=== PATIENT | male | born 1970 | race Caucasian/White ===

== ENCOUNTER → 2017-10-07 14:50 | Outpatient (CLI) | payer MEDICARE, MEDICAID, SELFPAY ==
--- NOTE | 2017-10-07 15:02 | XR_ITS ---
XR thoracic spine 2V Ordering Physician: Nirali Briceño Patient Age: 47 years: Male HISTORY: ITS.REASON: AFTERCARE FOLLOWING SURGERY Upper back pain and tingling in right and left shoulder. C-spine surgery August 2017. TECHNIQUE: AP lateral and swimmer's view T-spine COMPARISON : Previous portable chest 2017 and previous cervical spine series from March 2017 FINDINGS No acute findings in the thoracic spine. Modest Anterior marginal osteophytes are seen throughout of the T-spine and lumbar vertebral bodies are intact and the disc spaces are well-maintained overall. Pedicles are intact no paraspinal mass. There may be very very gradual less than 4-5 degree gradual dextrocurvature mid T-spine,. This could be positional. Posterior ribs visualized unremarkable. Postsurgical changes are seen at the lower T-spine, C5-6 IMPRESSION: 1. The T-spine intact with mild degenerative changes. ... Vertebral bodies & disc intact. ... Early marginal osteophytes and degenerative changes throughout the T-spine noted. 2. Subtle dextrocurvature less than 5 degrees T-spine. Possibly in part due to positioning. 3. Partially imaged Anterior fusion C5/6 level noted on these T-spine series.
== END ==
PROVIDERS: PCP Family Medicine; Visit Provider Neurological Surgery
DX: Z48.89 Encounter for other specified surgical aftercare (principal)
CPT/HCPCS: 72070

== ENCOUNTER → 2017-12-01 09:26 | Outpatient (POV) | payer MEDICARE, MEDICAID, SELFPAY ==
[2017-12-01 11:01] LABS: Basophils # 0.1 K/mm3 (0-0.2); Basophils % 0.6 % (0.1-2.0); Eosinophils # 0.4 K/mm3 (0.0-0.4); Eosinophils % 3.6 % (0.1-12.0); Hemoglobin 15.8 g/dL (14.1-18.0); Lymphocytes # 3.2 K/mm3 (0.7-4.5); Lymphocytes % 33.3 K/mm3 (10-50); Mean Corpuscular Hemoglobin 30.5 pg (27.0-31.2); Mean Corpuscular Volume 92.5 fl (80-94); Mean Platelet Volume 7.9 fl (7.4-10.4); Monocytes # 0.6 K/mm3 (0.1-1.0); Monocytes % 5.9 % (1.7-9.3); Neutrophils # 5.4 K/mm3 (1.8-7.8); Neutrophils % 56.6 % (37.0-80.0); Platelet Count 288 K/mm3 (142-424); Red Blood Count 5.19 M/mm3 (4.60-6.20); Red Cell Distribution Width 13.1 % (11.5-17.5); White Blood Count 9.6 K/mm3 (4.8-10.8)
[2017-12-01 12:34] LABS: Alanine Aminotransferase 35 U/L (12-78); Albumin Level 3.3 gm/dL (3.4-5.0); Albumin/Globulin Ratio 0.8 (1.1-1.8); Alkaline Phosphatase 82 U/L (46-116); Anion Gap 12.5 mEq/L (5-15); Aspartate Amino Transferase 26 U/L (15-37); Bilirubin,Total 0.3 mg/dL (0.2-1.0); Blood Urea Nitrogen 7 mg/dL (7-18); Calcium 9.3 mg/dL (8.5-10.1); Carbon Dioxide 27 mmol/L (21.0-32.0); Chloride 105 mmol/L (98-107); Creatinine,Serum 0.72 mg/dL (0.70-1.30); Estimated Glomerular Filt Rate 117 ml/min (>60); GFR (African American) 142 ML/MIN (>60); Glucose 146 mg/dL (74-106); Potassium 4.5 mmoL/L (3.5-5.1); Sodium 140 mmol/L (136-145); Total Protein,Serum 7.3 gm/dL (6.4-8.2)
[2017-12-02 09:22] LABS: Hep A Ab, IgM Negative (Negative); Hepatitis B Core Antibody IgM Negative (Negative); Hepatitis B Surface Antigen Negative (Negative)
[2017-12-02 10:20] LABS: Hepatitis C Antibody <0.1 s/co ratio (0.0-0.9)
== END ==
PROVIDERS: PCP Emergency Medicine; Visit Provider Dermatology
DX: L40.0 Psoriasis vulgaris (principal); Z79.899 Other long term (current) drug therapy; R53.82 Chronic fatigue, unspecified
CPT/HCPCS: 36415; 80053; 80074; 85025; 86480

== ENCOUNTER → 2017-12-13 09:14 | Outpatient (REF) | payer MEDICARE, MEDICAID, SELFPAY ==
[2017-12-13 14:04] LABS: Amphetamine/Metha Screen,Urine Negative ng/mL (<1000); Barbiturates Screen,Urine Negative ng/mL (<200); Benzodiazepines Screen,Urine Negative ng/mL (200); Cannabinoid Screen,Urine Negative ng/mL (<50); Cocaine Screen,Urine Negative ng/g (<300); Methadone Screen,Urine Negative ng/mL (<300); Opiate Screen,Urine Negative ng/mL (<300); Phencyclidine Screen,Urine Negative ng/mL (<25)
== END ==
LOC: LAB 09:14
PROVIDERS: Visit Provider Emergency Medicine
DX: Z79.899 Other long term (current) drug therapy (principal)
CPT/HCPCS: 80305

== ENCOUNTER → 2018-01-10 09:44 | Outpatient (REF) | payer MEDICARE, MEDICAID, SELFPAY ==
[2018-01-10 14:45] LABS: Amphetamine/Metha Screen,Urine Negative ng/mL (<1000); Barbiturates Screen,Urine Negative ng/mL (<200); Benzodiazepines Screen,Urine Negative ng/mL (200); Cannabinoid Screen,Urine Negative ng/mL (<50); Cocaine Screen,Urine Negative ng/g (<300); Methadone Screen,Urine Negative ng/mL (<300); Opiate Screen,Urine Negative ng/mL (<300); Phencyclidine Screen,Urine Negative ng/mL (<25)
== END ==
LOC: LAB 09:44
PROVIDERS: Visit Provider Emergency Medicine
DX: Z79.899 Other long term (current) drug therapy (principal)
CPT/HCPCS: 80305

== ENCOUNTER → 2018-01-16 09:34 | Outpatient (POV) | payer MEDICARE, MEDICAID, SELFPAY | PROVIDERS: PCP Emergency Medicine; Visit Provider Physician Assistant | DX: Z00.00 Encounter for general adult medical examination without abnormal findings (principal) ==

== ENCOUNTER → 2018-02-07 14:55 | Outpatient (REF) | payer MEDICARE, MEDICAID, SELFPAY ==
[2018-02-07 19:02] LABS: Amphetamine/Metha Screen,Urine Negative ng/mL (<1000); Barbiturates Screen,Urine Negative ng/mL (<200); Benzodiazepines Screen,Urine Positive ng/mL (<200); Cannabinoid Screen,Urine Negative ng/mL (<50); Cocaine Screen,Urine Negative ng/mL (<300); Methadone Screen,Urine Negative ng/mL (<300); Opiate Screen,Urine Negative ng/mL (<300); Phencyclidine Screen,Urine Negative ng/mL (<25)
== END ==
LOC: LAB 14:55
PROVIDERS: Visit Provider Emergency Medicine
DX: Z79.899 Other long term (current) drug therapy (principal)
CPT/HCPCS: 80305

== ENCOUNTER → 2018-02-13 13:06 | Outpatient (CLI) | payer MEDICARE, MEDICAID, SELFPAY ==
--- NOTE | 2018-02-13 13:09 | CI_ITS ---
Cerebrovascular Exam Indications: TIA 434.91. IMPRESSIONS 1. The bilateral vertebral arteries are patent with normal antegrade flow. 2. Study suggests less than 20% stenosis involving the right internal carotid artery and the left internal carotid artery. Carotid duplex study. Complete study and Doppler flow study including spectral analysis, color and meadows scale imaging. Height: Height: 177.8cm. Height: 70in. Weight: Weight: 132kg. Weight: 290.4lb. Body mass index: BMI: 41.8kg/m^2. Body surface area: BSA: 2.61m^2. Location: Vascular laboratory. Patient status: Outpatient. Tables: Arterial flow: + +--------+--------+ Location V sys V ed + +--------+--------+ Right CCA - proximal 185cm/s 47.1cm/s + +--------+--------+ Right CCA - distal 158cm/s 47.1cm/s + +--------+--------+ Right ECA 133cm/s -------- + +--------+--------+ Right ICA - proximal 96cm/s 29.7cm/s + +--------+--------+ Right ICA - mid 107cm/s 31.4cm/s + +--------+--------+ Right ICA - distal 94.3cm/s 33.2cm/s + +--------+--------+ Right vertebral 47.5cm/s -------- + +--------+--------+ Left CCA - proximal 171cm/s 39.3cm/s + +--------+--------+ Left CCA - distal 122cm/s 27.9cm/s + +--------+--------+ Left ECA 115cm/s -------- + +--------+--------+ Left ICA - proximal 112cm/s 32.1cm/s + +--------+--------+ Left ICA - mid 128cm/s 42.6cm/s + +--------+--------+ Left ICA - distal 131cm/s 64.2cm/s + +--------+--------+ Left vertebral 31.4cm/s -------- + +--------+--------+ Velocity ratios: + + + + + + Right, V sys Right, V ed Left, V sys Left, V ed + + + + + + Max ICA/dist CCA 0.68 0.7 1.07 2.3 + + + + + + (Report amended ) Electronically signed by: Kodak Rich [id number]
== END ==
PROVIDERS: PCP Emergency Medicine; Visit Provider Emergency Medicine
DX: Z86.73 Personal history of transient ischemic attack (TIA), and cerebral infarction without residual deficits (principal)
CPT/HCPCS: 93880

== ENCOUNTER → 2018-03-10 10:10 | Outpatient (REF) | payer MEDICARE, MEDICAID, SELFPAY ==
[2018-03-10 14:23] LABS: Amphetamine/Metha Screen,Urine Negative ng/mL (<1000); Barbiturates Screen,Urine Negative ng/mL (<200); Benzodiazepines Screen,Urine Negative ng/mL (<200); Cannabinoid Screen,Urine Negative ng/mL (<50); Cocaine Screen,Urine Negative ng/mL (<300); Methadone Screen,Urine Negative ng/mL (<300); Opiate Screen,Urine Negative ng/mL (<300); Phencyclidine Screen,Urine Negative ng/mL (<25)
== END ==
LOC: LAB 10:10
PROVIDERS: Visit Provider Emergency Medicine
DX: Z79.899 Other long term (current) drug therapy (principal)
CPT/HCPCS: 80305

== ENCOUNTER → 2018-03-13 15:41 | Outpatient (CLI) | payer MEDICARE, MEDICAID, SELFPAY | PROVIDERS: PCP Emergency Medicine; Visit Provider Specialist | DX: I99.8 Other disorder of circulatory system (principal); E11.9 Type 2 diabetes mellitus without complications ==

== ENCOUNTER → 2018-04-07 08:33 | Outpatient (REF) | payer MEDICARE, MEDICAID, SELFPAY ==
[2018-04-07 18:48] LABS: Amphetamine/Metha Screen,Urine Negative ng/mL (<1000); Barbiturates Screen,Urine Negative ng/mL (<200); Benzodiazepines Screen,Urine Negative ng/mL (<200); Cannabinoid Screen,Urine Negative ng/mL (<50); Cocaine Screen,Urine Negative ng/mL (<300); Methadone Screen,Urine Negative ng/mL (<300); Opiate Screen,Urine Negative ng/mL (<300); Phencyclidine Screen,Urine Negative ng/mL (<25)
== END ==
LOC: LAB 08:33
PROVIDERS: Visit Provider Emergency Medicine
DX: Z79.899 Other long term (current) drug therapy (principal)
CPT/HCPCS: 80305

== ENCOUNTER → 2018-06-19 13:48 | Outpatient (CLI) | payer MEDICARE, SELFPAY ==
--- NOTE | 2018-06-19 13:49 | MR_ITS ---
MR cervical spine wo con, MR 3-d myelogram/MRCP Ordering Physician: Syed Riley MD Patient Age: 48 years: Male HISTORY: ITS.REASON: cervical disc diseaseneck pain. Bilateral shoulder and arm numbness and tingling right arm worse. Previous neck surgery. 19 August 2017 TECHNIQUE: Sagittal STIR, T1, T2, axial T1 and T2. On 1.5T Siemens wide bore MRI. 3-D MR myelogram image set obtained & performed on MRI workstation. Additional sagittal thin section T2 weighted dataset obtained from this latter acquisition as well (---76 CPT) COMPARISON :Previous MRI cervical spine 02/11/2017 FINDINGS Cranial cervical junction is normal. C2/3. Disc intact C3/4 focal central disc protrusion which does focal efface the cervical cord at midline. C4/5 minimal central disc bulge/ scant central disc protrusion. This just abuts the anterior aspect of cervical cord. Minimal uncovertebral joint hypertrophy bilaterally. C5-C6 interval anterior discectomy and anterior fusion at C5/6.. Good alignment. To the left, there is Persistent mild hard disc, left paracentral region, which does indent thecal sac and just mildly flattening the cervical cord the left. Similar to slight improved appearance here to the left versus 2017.. Only scant, less than evident T2 signal at cervical cord Itself, seen just posterior to this C5/6 level . To the right generous focal spur with accompanying disc, seen encroaching upon the right foramen. ( Axial image 22.. Sagittal 8) this was seen previously question slightly more apparent on today's slices. Resulting moderate/generous right foraminal encroachment C6/7. Mild broad-based disc protrusion midline and continuing to the right-. Slightly indents thecal sac to the right. This feature is very slightly more apparent than 2017 C7/T1 disc intact T1/T2. This intact. Posterior element, facet hypertrophy slightly mid posterior aspect of the spinal canal at this level as well likely at T2/T3. 3-D MR myelogram image set set demonstrates narrowing of the spinal canal at C5/6 with most evident indentation upon the thecal sac to the right related to the focal spur/hard disc to the right which yields yields encroachment upon right foramen. And effaces right corner of thecal sac. . Appears to be Slight improvement to the left at this level on the 3-D myelogram image set . IMPRESSION 1. Interval anterior discectomy & fusion at C5/6. .... C5/6.. Focal spur encroach upon right foramen as well as effaces right corner of thecal sac... Similar to slightly more evident ...... Mild broad-based mainly hard disc, left paracentral-. Perhaps slightly improved versus 2017 ..... Overall Mild residual central canal spinal stenosis C5-C6. .... Increased signal at the cervical cord itself at this level again noted but slightly improved. 2. C6-C7. Mild broad-based disc protrusion, midline & to the right-Slightly more evident Than 2017. 3. Other stable minor observations. ... C3/4. Small/moderate focal central disc protrusion. Appears Stable ... C4/5. Minimal disc osteophyte features only slightly indents thecal sac. ... Modest volume Underlying osseous spinal .
== END ==
PROVIDERS: PCP Emergency Medicine; Visit Provider Emergency Medicine
DX: M54.2 Cervicalgia
CPT/HCPCS: 72141; 76376

== ENCOUNTER → 2018-06-27 14:48 | Outpatient (CLI) | payer MEDICARE, SELFPAY ==
[2018-06-27 15:11] LABS: Amphetamine/Metha Screen,Urine Negative ng/mL (<1000); Barbiturates Screen,Urine Negative ng/mL (<200); Benzodiazepines Screen,Urine Negative ng/mL (<200); Cannabinoid Screen,Urine Negative ng/mL (<50); Cocaine Screen,Urine Negative ng/mL (<300); Methadone Screen,Urine Negative ng/mL (<300); Opiate Screen,Urine Negative ng/mL (<300); Phencyclidine Screen,Urine Negative ng/mL (<25)
== END ==
PROVIDERS: Visit Provider Emergency Medicine
DX: Z79.899 Other long term (current) drug therapy (principal)
CPT/HCPCS: 80305

== ENCOUNTER → 2018-07-18 09:01 | Outpatient (POV) | payer MEDICARE, MEDICAID, SELFPAY ==
[2018-07-18 09:20] VITALS: BP 141/75; PULSE 89; RESP 18; O2SAT 99
--- NOTE | 2018-07-18 09:41 | HMH.PMCON ---
Assessment and Plan (1) Postlaminectomy syndrome, cervical Current visit: Yes Status: Acute Category: Medical Code(s): M96.1 - Postlaminectomy syndrome, not elsewhere classified (2) Degenerative joint disease (DJD) of lumbar spine Current visit: Yes Status: Acute Category: Medical Code(s): M47.816 - Spondylosis without myelopathy or radiculopathy, lumbar region (3) Cervical radiculopathy Current visit: Yes Status: Acute Category: Medical Code(s): M54.12 - Radiculopathy, cervical region - Assessment and plan all Dx Assessment and Plan for all problems:: We will set the patient up for C5-C6 cervical epidural steroid injection. Patient also will be given some information on neuro stimulation I do believe this may be beneficial for him in the future. Patient is currently on a low-dose narcotic regimen of [place] 5 mg 1 p.o. 3 times daily from his primary care which seems quite appropriate at this time. I will follow-up with the patient after his injection. We will reassess his symptoms at that time. This note was dictated using voice recognition software and may contain errors or omissions HPI - Data of Consult Consult date: 07/18/18 Requesting Physician: Ava Bryant APRN Primary Care Provider: Syed Riley MD - Consult Narrative Reason for consult: Neck and back pain History of present illness: Mr. Workman is a 48 year old male who presents today for consultation in regards to his neck and back pain. His worst pain today is his neck he rates it a 9 out of 10. He has numbness and tingling into bilateral arms reaching to his fingers. Patient states all activity increases pain while rest decreases pain. Patient is currently disabled. Patient has not done physical therapy at this time however he is keeping with a home stretching program. Patient has been on anti-inflammatories along with narcotic medications. Patient has had facet joint injections in the past along with a risotto means with no relief. Patient also had neck surgery August of this year. He has been released from that surgeon. Patient is not on any anticoagulation therapy. CC: Ava Bryant APRN [facility] History I have reviewed the patient's past medical history: Yes Medical History: Reports:: Diabetes Mellitus Type 2, Gastroesophageal Reflux Disease(GERD), Hyperlipidemia, Hypertension, Myocardial Infarction, Transient Ischemic Attacks (TIA) Denies:: Cancer, Diabetes Mellitus Type 1, MRSA Other Medical History: Reports: Arthritis Laterality Cases: Bilateral: Tonsillectomy Other Surgeries: Yes: Other Amputation: No Fractures: Yes (ankles,tail bone,hand) - *Social History Smoking Status: Current every day smoker Tobacco Type: cigarettes Alcohol Intake: never Alcohol Intake Frequency:: other Substance Use Type: denies use Occupational Status: disabled Housing: house Household Members: family - Psychiatric History Expresses thoughts of harming self/others: None Suicide Plan Description: No Plan *Family Hx:: Hypertension, Coronary Artery Disease Review of Systems - Review of Systems ROS General: no recent weight change, no fever, no sleep disturbances Respiratory: no cough, no shortness of air, no recurring pulmonary infections Cardiovascular/Peripheral Vascular: No chest pain, No palpitations, no edema, no shortness of breath. Gastrointestinal: no incontinence, normal bowel movements reported Genitourinary: no incontinence Musculoskeletal: Back pain, neck pain, arm pain Psychiatric: normal mood/ affect, Neurological: Weakness in bilateral upper extremities at times, [denies balance issues] Meds Home Medications Medication Instructions Recorded Confirmed Type atorvastatin 10 mg tablet 10 mg PO DAILY 08/24/17 06/27/18 History clobetasol 0.05 % topical cream 1 applic TOPICAL DAILY 08/24/17 06/27/18 History cyclobenzaprine 10 mg tablet 10 mg PO DAILY tab 08/24/17 06/27/18 History adalimum
--- NOTE | 2018-07-18 09:44 | P.CONS_ITS ---
Assessment and Plan (1) Postlaminectomy syndrome, cervical Current visit: Yes Status: Acute Category: Medical Code(s): M96.1 - Postlaminectomy syndrome, not elsewhere classified (2) Degenerative joint disease (DJD) of lumbar spine Current visit: Yes Status: Acute Category: Medical Code(s): M47.816 - Spondylosis without myelopathy or radiculopathy, lumbar region (3) Cervical radiculopathy Current visit: Yes Status: Acute Category: Medical Code(s): M54.12 - Radiculopathy, cervical region - Assessment and plan all Dx Assessment and Plan for all problems:: We will set the patient up for C5-C6 cervical epidural steroid injection. Patient also will be given some information on neuro stimulation I do believe this may be beneficial for him in the future. Patient is currently on a low- dose narcotic regimen of [place] 5 mg 1 p.o. 3 times daily from his primary care which seems quite appropriate at this time. I will follow-up with the patient after his injection. We will reassess his symptoms at that time. This note was dictated using voice recognition software and may contain errors or omissions HPI - Data of Consult Consult date: 07/18/18 Requesting Physician: Ava Bryant APRN Primary Care Provider: Syed Riley MD - Consult Narrative Reason for consult: Neck and back pain History of present illness: Mr. Workman is a 48 year old male who presents today for consultation in regards to his neck and back pain. His worst pain today is his neck he rates it a 9 out of 10. He has numbness and tingling into bilateral arms reaching to his fingers. Patient states all activity increases pain while rest decreases pain. Patient is currently disabled. Patient has not done physical therapy at this time however he is keeping with a home stretching program. Patient has been on anti-inflammatories along with narcotic medications. Patient has had facet joint injections in the past along with a risotto means with no relief. Patient also had neck surgery August of this year. He has been released from that surgeon. Patient is not on any anticoagulation therapy. CC: Ava Bryant APRN [facility] History I have reviewed the patient's past medical history: Yes Medical History: Reports:: Diabetes Mellitus Type 2, Gastroesophageal Reflux Disease(GERD), Hyperlipidemia, Hypertension, Myocardial Infarction, Transient Ischemic Attacks (TIA) Denies:: Cancer, Diabetes Mellitus Type 1, MRSA Other Medical History: Reports: Arthritis Laterality Cases: Bilateral: Tonsillectomy Other Surgeries: Yes: Other Amputation: No Fractures: Yes (ankles,tail bone,hand) - *Social History Smoking Status: Current every day smoker Tobacco Type: cigarettes Alcohol Intake: never Alcohol Intake Frequency:: other Substance Use Type: denies use Occupational Status: disabled Housing: house Household Members: family - Psychiatric History Expresses thoughts of harming self/others: None Suicide Plan Description: No Plan *Family Hx:: Hypertension, Coronary Artery Disease Review of Systems - Review of Systems ROS General: no recent weight change, no fever, no sleep disturbances Respiratory: no cough, no shortness of air, no recurring pulmonary infections Cardiovascular/Peripheral Vascular: No chest pain, No palpitations, no edema, no shortness of breath. Gastrointestinal: no incontinence, normal bowel movements reported Genitourinary: no incontinence Musculoskeletal: Back pain, neck pain, arm pain Psychiatric: normal mood/ affect, Neurolog
== END ==
PROVIDERS: PCP Emergency Medicine; Visit Provider Clinical Nurse Specialist Family Health
DX: M96.1 Postlaminectomy syndrome, not elsewhere classified (principal); M47.816 Spondylosis without myelopathy or radiculopathy, lumbar region; M54.12 Radiculopathy, cervical region
CPT/HCPCS: 99202

== ENCOUNTER → 2018-08-28 14:31 | Outpatient (POV) | payer MEDICARE, MEDICAID, SELFPAY ==
[2018-08-28 14:47] VITALS: BP 155/95; PULSE 101; RESP 18; O2SAT 99; BMI 39.7
--- NOTE | 2018-08-28 14:58 | P.CONS_ITS ---
[facility] Pain Management SOAP Note Subjective:: Patient is a pleasant 48-year-old white male who presents today for follow-up after his first cervical epidural injection. Patient states that all of his right-sided nerve pain has decreased significantly. Patient states is also help with his neck pain. He rates his pain a 6 out of 10. Patient otherwise doing fairly well. Patient denies any anticoagulation therapy. Patient is interested in repeating this injection. Patient states that his primary care has sent him back to his neurosurgeon. I discussed with the patient that we can continue with the injections to help prepare for that visit. Patient is interested in moving forward with this. Patient states he got up to 80% relief of his symptoms after the injection. ROS General: no recent weight change, no fever, no sleep disturbances Respiratory: no cough, no shortness of air, no recurring pulmonary infections Cardiovascular/Peripheral Vascular: No chest pain, No palpitations, no edema, no shortness of breath. Gastrointestinal: no incontinence, normal bowel movements reported Genitourinary: no incontinence Musculoskeletal: Neck pain Psychiatric: normal mood/ affect Neurological: [denies weakness in extremities], [denies balance issues] Objective:: Physical Exam General: Alert and oriented x3, no acute distress, pleasant and cooperative, [on room air] Lungs: Resps E/U, Symmetrical chest expansion, Eyes: PERRL Musculoskeletal: Flexion and extension of cervical spine somewhat guarded secondary to pain, deep tendon reflexes normal, strength in upper and lower extremities [5/5], normal gait noted Neurological: speech clear, blue print control clerk equal, no gross sensory deficits Assessment:: Degenerative disc disease cervical spine with cervical radiculopathy symptoms and post laminectomy syndrome Plan:: We will schedule him for repeat C5-C6 cervical epidural steroid injection given the efficacy of the last one. He is continuing his home stretching program. I will follow-up with him after his second injection. Dr. Montes has reviewed this note and agrees with this plan of care. This note was dictated using voice recognition software and may contain errors or omissions
== END ==
PROVIDERS: PCP Emergency Medicine; Visit Provider Clinical Nurse Specialist Family Health
DX: M96.1 Postlaminectomy syndrome, not elsewhere classified (principal); M50.10 Cervical disc disorder with radiculopathy, unspecified cervical region
CPT/HCPCS: 99213

== ENCOUNTER → 2018-10-09 14:35 | Outpatient (POV) | payer MEDICARE, MEDICAID, SELFPAY ==
[2018-10-09 14:48] VITALS: BP 157/99; PULSE 77; RESP 18; O2SAT 98; BMI 40.4
--- NOTE | 2018-10-10 08:40 | P.CONS_ITS ---
[facility] Pain Management SOAP Note Subjective:: Patient is a pleasant 48-year-old white male who presents today for follow-up after cervical epidural steroid injection. Patient rates his pain a 6 out of 10. Patient is doing extremely well getting 80% relief after his injection. Patient would like to move forward with one last cervical epidural steroid injection to see if he can get maximum benefit. Patient was then like to start discussing his low back pain. ROS General: no recent weight change, no fever, no sleep disturbances Respiratory: no cough, no shortness of air, no recurring pulmonary infections Cardiovascular/Peripheral Vascular: No chest pain, No palpitations, no edema, no shortness of breath. Gastrointestinal: no incontinence, normal bowel movements reported Genitourinary: no incontinence Musculoskeletal: Neck and low back pain Psychiatric: normal mood/ affect Neurological: [denies weakness in extremities], [denies balance issues] Objective:: Physical Exam General: Alert and oriented x3, no acute distress, pleasant and cooperative, [on room air] Lungs: Resps E/U, Symmetrical chest expansion, Eyes: PERRL Musculoskeletal: Flexion and extension of cervical and lumbar spine somewhat guarded secondary to pain, deep tendon reflexes normal, strength in upper and lower extremities [5/5], slightly antalgic gait noted Neurological: speech clear, motor polarizer equal, no gross sensory deficits Assessment:: Degenerative disc disease with cervical spinal cervical radiculopathy symptoms and postlaminectomy syndrome cervical spine Plan:: We will schedule a C4-C5 cervical epidural steroid injection for the patient given the efficacy of this in the past. He is not on any anticoagulation therapy. He is continuing on anti-inflammatories while I will follow-up with the patient after his injection and reassess his symptoms at that time. Patient is continuing a home stretching program. Dr. Montes has reviewed this note and agrees with this plan of care. This note was dictated using voice recognition software and may contain errors or omissions
== END ==
PROVIDERS: PCP Emergency Medicine; Visit Provider Clinical Nurse Specialist Family Health
DX: M50.10 Cervical disc disorder with radiculopathy, unspecified cervical region (principal); M96.1 Postlaminectomy syndrome, not elsewhere classified
CPT/HCPCS: 99213

== ENCOUNTER → 2018-10-10 13:46 | Outpatient (CLI) | payer MEDICARE, MEDICAID, SELFPAY ==
[2018-10-10 14:28] LABS: Amphetamine/Metha Screen,Urine Negative ng/mL (<1000); Barbiturates Screen,Urine Negative ng/mL (<200); Benzodiazepines Screen,Urine Negative ng/mL (<200); Cannabinoid Screen,Urine Negative ng/mL (<50); Cocaine Screen,Urine Negative ng/mL (<300); Methadone Screen,Urine Negative ng/mL (<300); Opiate Screen,Urine Positive ng/mL (<300); Phencyclidine Screen,Urine Negative ng/mL (<25)
== END ==
PROVIDERS: Visit Provider Nurse Practitioner Family
DX: Z79.899 Other long term (current) drug therapy (principal)
CPT/HCPCS: 80305

== ENCOUNTER → 2018-11-13 09:51 | Outpatient (POV) | payer MEDICARE, MEDICAID, SELFPAY ==
--- NOTE | 2018-11-13 10:12 | P.CONS_ITS ---
[facility] Pain Management SOAP Note Subjective:: She is a pleasant 48-year-old white male who presents today for follow-up after cervical epidural steroid injection. Patient states his neck pain is doing really well rates it a 3 out of 10. Most of his pain is in his tailbone today he did fall yesterday causing quite a bit of low back pain. ROS General: no recent weight change, no fever, no sleep disturbances Respiratory: no cough, no shortness of air, no recurring pulmonary infections Cardiovascular/Peripheral Vascular: No chest pain, No palpitations, no edema, no shortness of breath. Gastrointestinal: no incontinence, normal bowel movements reported Genitourinary: no incontinence Musculoskeletal: Back pain Psychiatric: normal mood/ affect Neurological: [denies weakness in extremities], [denies balance issues] Objective:: Physical Exam General: Alert and oriented x3, no acute distress, pleasant and cooperative, [on room air] Lungs: Resps E/U, Symmetrical chest expansion, Eyes: PERRL Musculoskeletal: Flexion and extension of lumbar spine somewhat guarded secondary to pain, deep tendon reflexes normal, strength in upper and lower extremities [5/5], [abnormal gait noted] Neurological: speech clear, nuclear physics teacher equal, no gross sensory deficits Assessment:: Degenerative disc disease cervical spine with cervical radiculopathy and degenerative disc disease lumbar spine with lumbar radiculopathy Plan:: We will call some prednisone in for the patient up follow-up with him in 2 weeks reassess his symptoms at that time. We will then move forward with a plan of care. Dr. Montes has reviewed this note and agrees with this plan of care. This note was dictated using voice recognition software and may contain errors or omissions
[2018-11-13 10:42] VITALS: BP 149/86; PULSE 83; RESP 18; O2SAT 98; BMI 39.0
== END ==
PROVIDERS: PCP Emergency Medicine; Visit Provider Clinical Nurse Specialist Family Health
DX: M50.10 Cervical disc disorder with radiculopathy, unspecified cervical region (principal); M51.16 Intervertebral disc disorders with radiculopathy, lumbar region
CPT/HCPCS: 99212

== ENCOUNTER → 2018-11-14 13:18 | Outpatient (CLI) | payer MEDICARE, MEDICAID, SELFPAY ==
[2018-11-14 14:49] LABS: Amphetamine/Metha Screen,Urine Negative ng/mL (<1000); Barbiturates Screen,Urine Negative ng/mL (<200); Benzodiazepines Screen,Urine Positive ng/mL (<200); Cannabinoid Screen,Urine Negative ng/mL (<50); Cocaine Screen,Urine Negative ng/mL (<300); Methadone Screen,Urine Negative ng/mL (<300); Opiate Screen,Urine Positive ng/mL (<300); Phencyclidine Screen,Urine Negative ng/mL (<25)
== END ==
PROVIDERS: Visit Provider Nurse Practitioner Family
DX: T50.902A Poisoning by unspecified drugs, medicaments and biological substances, intentional self-harm, initial encounter (principal)
CPT/HCPCS: 80305

== ENCOUNTER → 2018-12-12 14:18 | Outpatient (CLI) | payer MEDICARE, MEDICAID, SELFPAY ==
[2018-12-12 16:24] LABS: Amphetamine/Metha Screen,Urine Negative ng/mL (<1000); Barbiturates Screen,Urine Negative ng/mL (<200); Benzodiazepines Screen,Urine Positive ng/mL (<200); Cannabinoid Screen,Urine Negative ng/mL (<50); Cocaine Screen,Urine Negative ng/mL (<300); Methadone Screen,Urine Negative ng/mL (<300); Opiate Screen,Urine Negative ng/mL (<300); Phencyclidine Screen,Urine Negative ng/mL (<25)
== END ==
PROVIDERS: Visit Provider Emergency Medicine
DX: Z79.899 Other long term (current) drug therapy (principal)
CPT/HCPCS: 80305

== ENCOUNTER → 2019-02-14 18:03 | Outpatient (CLI) | payer MEDICARE, MEDICAID, SELFPAY ==
[2019-02-14 18:56] LABS: Amphetamine/Metha Screen,Urine Negative ng/mL (<1000); Barbiturates Screen,Urine Negative ng/mL (<200); Benzodiazepines Screen,Urine Negative ng/mL (<200); Cannabinoid Screen,Urine Negative ng/mL (<50); Cocaine Screen,Urine Negative ng/mL (<300); Methadone Screen,Urine Negative ng/mL (<300); Opiate Screen,Urine Negative ng/mL (<300); Phencyclidine Screen,Urine Negative ng/mL (<25)
[2019-02-22 08:15] LABS: Opiates Negative (Cutoff=100)
== END ==
PROVIDERS: Visit Provider Emergency Medicine
DX: Z79.899 Other long term (current) drug therapy (principal)
CPT/HCPCS: 80305; 80361; 80365; G0480

== ENCOUNTER → 2019-04-04 17:48 | Outpatient (CLI) | payer MEDICARE, MEDICAID, SELFPAY ==
[2019-04-04 20:01] LABS: Amphetamine/Metha Screen,Urine Negative ng/mL (<1000); Barbiturates Screen,Urine Negative ng/mL (<200); Benzodiazepines Screen,Urine Negative ng/mL (<200); Cannabinoid Screen,Urine Negative ng/mL (<50); Cocaine Screen,Urine Negative ng/mL (<300); Methadone Screen,Urine Negative ng/mL (<300); Opiate Screen,Urine Positive ng/mL (<300); Phencyclidine Screen,Urine Negative ng/mL (<25)
== END ==
PROVIDERS: Visit Provider Emergency Medicine
DX: Z79.891 Long term (current) use of opiate analgesic (principal)
CPT/HCPCS: 80305

== ENCOUNTER → 2019-05-30 18:10 | Outpatient (CLI) | payer MEDICARE, MEDICAID, SELFPAY ==
[2019-05-30 18:53] LABS: Amphetamine/Metha Screen,Urine Negative ng/mL (<1000); Barbiturates Screen,Urine Negative ng/mL (<200); Benzodiazepines Screen,Urine Negative ng/mL (<200); Cannabinoid Screen,Urine Negative ng/mL (<50); Cocaine Screen,Urine Negative ng/mL (<300); Methadone Screen,Urine Negative ng/mL (<300); Opiate Screen,Urine Positive ng/mL (<300); Phencyclidine Screen,Urine Negative ng/mL (<25)
== END ==
PROVIDERS: Visit Provider Emergency Medicine
DX: M54.2 Cervicalgia (principal)
CPT/HCPCS: 80305

== ENCOUNTER → 2019-07-17 13:51 | Outpatient (CLI) | payer MEDICARE, SELFPAY ==
[2019-07-17 16:51] LABS: Amphetamine/Metha Screen,Urine Negative ng/mL (<1000); Barbiturates Screen,Urine Negative ng/mL (<200); Benzodiazepines Screen,Urine Negative ng/mL (<200); Cannabinoid Screen,Urine Negative ng/mL (<50); Cocaine Screen,Urine Negative ng/mL (<300); Methadone Screen,Urine Negative ng/mL (<300); Opiate Screen,Urine Positive ng/mL (<300); Phencyclidine Screen,Urine Negative ng/mL (<25)
== END ==
PROVIDERS: Visit Provider Emergency Medicine
DX: Z79.899 Other long term (current) drug therapy (principal)
CPT/HCPCS: 80305

== ENCOUNTER → 2019-09-04 17:52 | Outpatient (CLI) | payer MEDICARE, MEDICAID, SELFPAY ==
[2019-09-04 19:45] LABS: Amphetamine/Metha Screen,Urine Negative ng/mL (<1000); Barbiturates Screen,Urine Negative ng/mL (<200); Benzodiazepines Screen,Urine Negative ng/mL (<200); Cannabinoid Screen,Urine Negative ng/mL (<50); Cocaine Screen,Urine Negative ng/mL (<300); Methadone Screen,Urine Negative ng/mL (<300); Opiate Screen,Urine Positive ng/mL (<300); Phencyclidine Screen,Urine Negative ng/mL (<25)
== END ==
PROVIDERS: Visit Provider Emergency Medicine
DX: Z79.899 Other long term (current) drug therapy (principal)
CPT/HCPCS: 80305

== ENCOUNTER → 2019-10-04 11:58 | Outpatient (CLI) | payer MEDICARE, MEDICAID, SELFPAY ==
--- NOTE | 2019-10-04 | ECG_ITS ---
APPROVED REPORT Exam: Resting ECG HR:71 bpm ECG Measurements Heart Rate 71 AXES RI 130 P 42 QRSd 90 QRS -6 QT 408 T 49 QTc 443 <Conclusion> Normal sinus rhythm Normal ECG Electronically signed by : Geoffrey Crandall, 10/05/2019 08:43:37
--- NOTE | 2019-10-04 12:15 | XR_ITS ---
PROCEDURE: XR CHEST 2V CLINICAL HISTORY: preop Smoker, hypertension, COPD COMPARISON: CXR2V XR chest 2V from 01/22/2018 CXR2V XR chest 2V from 03/22/2018 CXR2V XR chest 2V from 06/04/2018 FINDINGS: The cardiomediastinal silhouette and pulmonary vascularity are within normal limits. There is mild coarsening of the bronchovascular markings nonspecific and may be seen with smoking related lung disease. No lobar consolidation or collapse. Postsurgical changes lower cervical spine. No acute bony abnormalities. IMPRESSION: Mild nonspecific coarsening of the bronchovascular markings otherwise negative Dictated by: Martinez Li MD 10/04/2019 15:30 Electronically signed by Martinez Li MD in [place] 10/04/2019 15:30
[2019-10-04 12:22] LABS: Basophils # 0.1 K/mm3 (0-0.2); Basophils % 0.7 % (0.1-2.0); Eosinophils # 0.4 K/mm3 (0.0-0.4); Eosinophils % 3.9 % (0.1-12.0); Hematocrit 46.5 % (42.0-52.0); Hemoglobin 15.7 g/dL (14.1-18.0); Lymphocytes # 3.1 K/mm3 (0.7-4.5); Lymphocytes % 30.3 % (10-50); Mean Corpuscular HGB Conc 33.7 g/dL (31.8-35.4); Mean Corpuscular Hemoglobin 31.1 pg (27.0-31.2); Mean Corpuscular Volume 92.2 fl (80-94); Monocytes # 0.5 K/mm3 (0.1-1.0); Monocytes % 4.7 % (1.7-9.3); Neutrophils # 6.2 K/mm3 (1.8-7.8); Neutrophils % 60.5 % (37.0-80.0); Platelet Count 273 K/mm3 (142-424); Red Blood Count 5.04 M/mm3 (4.60-6.20); Red Cell Distribution Width 13.3 % (11.5-17.5); White Blood Count 10.3 K/mm3 (4.8-10.8)
[2019-10-04 13:49] LABS: Anion Gap 10.7 mEq/L (5-15); Blood Urea Nitrogen 8 mg/dl (9-20); Calcium 9.5 mg/dl (8.4-10.2); Carbon Dioxide 29 mmol/L (22.0-30.0); Chloride 101 mmol/L (98-107); Estimated Glomerular Filt Rate 120 ml/min (>60); GFR (African American) 145 ML/MIN (>60); Glucose 170 mg/dl (74-100); Potassium 4.7 mmoL/L (3.5-5.1); Sodium 136 mmol/L (136-145)
== END ==
PROVIDERS: Visit Provider Surgery
DX: K81.1 Chronic cholecystitis (principal); K42.9 Umbilical hernia without obstruction or gangrene; Z01.818 Encounter for other preprocedural examination
CPT/HCPCS: 36415; 71046; 80048; 85025; 93005

== ENCOUNTER → 2019-10-09 08:47 | Outpatient (CLI) | payer MEDICARE, MEDICAID, SELFPAY ==
--- NOTE | 2019-10-09 08:53 | XR_ITS ---
PROCEDURE: XR SHOULDER LT MIN 2V CLINICAL INDICATION: left shoulder pain COMPARISON: SHOULDCMRT XR shoulder RT min 2V from 06/04/2018 FINDINGS: There are prominent hypertrophic changes at the superior aspect of the acromioclavicular joint with mild osteoarthritis of the AC joint and glenohumeral joint. No significant subacromial stenosis. No fracture or dislocation. IMPRESSION: Osteoarthritic change of the acromioclavicular joint and glenohumeral joint Dictated by: Martinez Li MD 10/09/2019 10:48 Electronically signed by Martinez Li MD in [place] 10/09/2019 10:48
== END ==
PROVIDERS: PCP Emergency Medicine; Visit Provider Orthopaedic Surgery
DX: M25.512 Pain in left shoulder (principal)
CPT/HCPCS: 73030

== ENCOUNTER → 2019-10-29 10:11 | Outpatient (POV) | payer MEDICARE, MEDICAID, SELFPAY | PROVIDERS: PCP Emergency Medicine; Visit Provider Specialist | DX: M79.602 Pain in left arm (principal); M79.601 Pain in right arm; R20.2 Paresthesia of skin | CPT/HCPCS: 95886; 95908 ==

== ENCOUNTER → 2019-11-01 08:42 | Outpatient (CLI) | payer MEDICARE, MEDICAID, SELFPAY ==
--- NOTE | 2019-11-01 08:42 | MR_ITS ---
PROCEDURE: MR SHOULDER LT WO CON CLINICAL INDICATION: evaluate for rotator cuff tear Left shoulder pain for 1 year with no known injury The patient had trouble holding still for the exam. According to the technologist reports the best images obtainable were submitted. COMPARISON: No exams were available for comparison TECHNIQUE: Routine multiplanar multisequence exam was performed. FINDINGS: Varying degrees of patient motion artifact degrade all imaging sequences. There is moderate acromioclavicular joint arthropathy. A small amount of bone marrow edema appears to be present in the distal clavicle and in the acromion and small subchondral cysts appear to be present. Subchondral cysts are also seen in the posterior humeral head. There is some fluid signal within the acromioclavicular joint. Remaining bony elements appear of normal signal intensity. There is a partial-thickness near full-thickness tear of the supraspinatus tendon of the rotator cuff. Partial-thickness tear of the infraspinatus tendon also appears to be present. Bicipital tendon is poorly visualized for assessment due to patient motion artifact. Glenoid labrum appear grossly intact. A small amount of fluid is seen in the subdeltoid bursa. IMPRESSION: Limited exam with patient motion artifact degradation of images. Partial-thickness tears of supraspinatus and infraspinatus tendons of rotator cuff. Acromioclavicular joint arthropathy. Dictated by: Valente Bryant 11/01/2019 11:26 Electronically signed by Valente Bryant in [place] 11/01/2019 11:26
== END ==
PROVIDERS: PCP Emergency Medicine; Visit Provider Orthopaedic Surgery
DX: M25.512 Pain in left shoulder (principal)
CPT/HCPCS: 73221

== ENCOUNTER 2019-11-06 11:24 | Outpatient (RCR) | payer MEDICARE, MEDICAID, SELFPAY | END 2019-11-06 12:00 | disposition home or self-care (01) | LOC: PT 11:24 | PROVIDERS: Visit Provider Orthopaedic Surgery | DX: G56.02 Carpal tunnel syndrome, left upper limb (principal) ==

== ENCOUNTER → 2020-01-26 10:07 | Outpatient (CLI) | payer MEDICARE, MEDICAID, SELFPAY ==
--- NOTE | 2020-01-26 10:30 | ECG_ITS ---
APPROVED REPORT Exam: Resting ECG HR:84 bpm ECG Measurements Heart Rate 84 AXES CO 148 P 57 QRSd 92 QRS -4 QT 378 T 56 QTc 446 <Conclusion> Normal sinus rhythm Incomplete RBBB Otherwise a Normal ECG Electronically signed by : Rolando Barbour, 01/26/2020 12:13:29
[2020-01-26 10:32] LABS: Basophils # 0.1 K/mm3 (0-0.2); Basophils % 0.6 % (0.1-2.0); Eosinophils # 0.4 K/mm3 (0.0-0.4); Eosinophils % 3.6 % (0.1-12.0); Hematocrit 50.3 % (42.0-52.0); Hemoglobin 17.1 g/dL (14.1-18.0); Lymphocytes # 3.7 K/mm3 (0.7-4.5); Lymphocytes % 35.8 % (10-50); Mean Corpuscular HGB Conc 33.9 g/dL (31.8-35.4); Mean Corpuscular Hemoglobin 31.7 pg (27.0-31.2); Mean Corpuscular Volume 93.5 fl (80-94); Mean Platelet Volume 7.9 fl (7.4-10.4); Monocytes # 0.4 K/mm3 (0.1-1.0); Monocytes % 3.9 % (1.7-9.3); Neutrophils # 5.9 K/mm3 (1.8-7.8); Neutrophils % 56.1 % (37.0-80.0); Platelet Count 244 K/mm3 (142-424); Red Blood Count 5.38 M/mm3 (4.60-6.20); Red Cell Distribution Width 13.4 % (11.5-17.5); White Blood Count 10.4 K/mm3 (4.8-10.8)
[2020-01-26 11:36] LABS: Coronavirus 19 IgG Antibody Negative (Negative); Coronavirus 19 IgM Antibody Negative (Negative)
[2020-01-26 12:18] LABS: Chloride 102 mmol/L (98-107); Potassium 4.8 mmoL/L (3.5-5.1); Sodium 135 mmol/L (136-145)
[2020-01-26 12:20] LABS: Alanine Aminotransferase 36 U/L (12-78); Blood Urea Nitrogen 16 mg/dl (9-20); Estimated Glomerular Filt Rate 103 ml/min (>60); GFR (African American) 124 ML/MIN (>60)
[2020-01-26 12:21] LABS: Albumin Level 3.9 g/dl (3.5-5.0); Albumin/Globulin Ratio 1.1 (1.1-1.8); Alkaline Phosphatase 58 U/L (38-126); Anion Gap 9.8 mEq/L (5-15); Aspartate Amino Transferase 34 U/L (17-59); Bilirubin,Total 0.5 mg/dl (0.2-1.3); Calcium 9.3 mg/dl (8.4-10.2); Carbon Dioxide 28 mmol/L (22.0-30.0); Globulin 3.4 g/dL (1.3-3.2); Glucose 188 mg/dl (74-100); Total Protein,Serum 7.3 g/dl (6.3-8.2)
== END ==
PROVIDERS: Visit Provider Orthopaedic Surgery
DX: Z01.818 Encounter for other preprocedural examination (principal); M25.512 Pain in left shoulder; M75.112 Incomplete rotator cuff tear or rupture of left shoulder, not specified as traumatic; M75.52 Bursitis of left shoulder; M75.42 Impingement syndrome of left shoulder; Z79.899 Other long term (current) drug therapy
CPT/HCPCS: 36415; 80053; 83036; 85025; 86328; 93005

== ENCOUNTER 2020-01-28 06:12 | Day surgery (SDC) | payer MEDICARE, MEDICAID, SELFPAY ==
[2020-01-25 13:55] VITALS: BMI 39.7
[2020-01-28] VITALS (28 sets, daily range): BP systolic 124–229; BP diastolic 66–190; PULSE 86–115; RESP 13–32; TEMP 36.3–38; O2SAT 90–97
--- NOTE | 2020-01-28 06:51 | P.PN_ITS ---
[facility] Anesthesia Checklist - Structural Data Admitted From: Home Planned Operative Procedure/s: l shoulder arthroscopy Consent for Planned Operative Procedure(s) Verified: Yes - Additional verifications Anesthesia Reactions: No Hx Blood Transfusions: No Blood Transfusion Reaction: No - Airway Assessment C-Spine Mobility Assessed: No (neck surgery) TMJ Mobility Assessed: Yes Dentition: Poor Dentition - Neurological Assessment Level of Consciousness: Awake, Alert, Appropriate - Anesthesia Plan Anesthesia Risk discussed: Yes Anesthesia Plan: Patient unable to respond/answer ASA Class: III Anesthesia Type: General w/block [facility] History I have reviewed the patient's past medical history: Yes Medical History: Reports:: Depression, Gastroesophageal Reflux Disease(GERD), Hyperlipidemia, Hypertension, Myocardial Infarction, Transient Ischemic Attacks (TIA) Denies:: Cancer, Diabetes Mellitus Type 1, Diabetes Mellitus Type 2, Internal Pacemaker, MRSA, Seizures *Have you ever received a pneumonia vaccine?: Yes *Have you received a flu vaccine this season?: Yes Other Medical History: Reports: Arthritis. Denies: Blood Transfusion Reaction Anesthesia experience/problems:: none Laterality Cases: Bilateral: Tonsillectomy Other Surgeries: Yes: Colonoscopy, Hernia Repair, Other. No: Pacemaker Amputation: No Fractures: Yes (ankles,tail bone,hand) - *Social History Educational Level: Completed High School Smoking Status: Current every day smoker Tobacco Type: cigarettes # Packs/Day (cigarettes): 1 Alcohol Intake: never Alcohol Intake Frequency:: other Substance Use Type: denies use *Occupational Status:: disabled Housing: house Household Members: spouse *Travel in the last 8 weeks: None - Psychiatric History Pschychiatric History:: Reports:: Depression Family Hx:: Coronary Artery Disease, Diabetes, Heart Attack, Hyperlipidemia, Hypertension, Stroke
[2020-01-28 09:19] LABS: Microscopic,Cath URINE MICROSCOPIC (MICROSCOPIC)
[2020-01-28 09:21] LABS: Appearance,Urine/Cath CLEAR (Clear); Bilirubin,Cath Negative (Negative); Blood, Urine/Cath Negative (Negative); Color,Urine/Cath YELLOW (Yellow); Glucose,Urine/Cath (UA) Negative (Negative); Ketones,Urine/Cath Negative (Negative); Leukocyte Esterase,Cath Negative (Negative); Nitrate,Cath Negative (Negative); PH,Urine/Cath 6.5 (5.0-8.5); Protein,Urine/Cath Negative (Negative); Specific Gravity, Urine/Cath 1.015 (1.005-1.030)
--- NOTE | 2020-01-28 10:09 | XR_ITS ---
PROCEDURE: XR SHOULDER LT 1V CLINICAL INDICATION: SCOPE PLACEMENT FOR ARTHROSCOPY COMPARISON: SHOULDCMRT XR shoulder RT min 2V from 06/04/2018 XR SHOULDER LT MIN 2V from 10/09/2019 FINDINGS: Fluoro time: 56 seconds Single axillary view submitted showing shoulder location IMPRESSION: C-arm utilization for arthroscopy Dictated by: Martinez Li MD 01/28/2020 12:18 Electronically signed by Martinez Li MD in [place] 01/28/2020 12:18
--- NOTE | 2020-01-28 10:16 | SUR.OPER ---
1008-converted to open rotator cuff repair at this time.
--- NOTE | 2020-01-28 12:23 | HMH.ANESI ---
[facility] Anesthesia Record Part I Intake, IV Amount: 1,900 Estimated blood loss (mL): 20 Urine output (mL): 400 Blood Products used (#): none Blood Pressure: 165/90 SaO2: 93 Pulse Rate: 104 Respiratory Rate: 20 Temperature: 97.7 F Patient is:: Awake, Nasal O2, Stable Stable to PACU at:: 12:20
--- NOTE | 2020-01-28 14:36 | HMH.OPNOTE ---
Date of procedure: 01/28/20 Pre-op Diagnosis:: 1. Full-thickness rotator cuff tear, left shoulder 2. Biceps tendinopathy, left shoulder 3. Subacromial bursitis, left shoulder 4. Subacromial impingement, left shoulder 5. Acromioclavicular joint arthritis, left Post-op Diagnosis:: Same Procedure performed:: 1. Open rotator cuff repair, left shoulder. 2. Open subacromial decompression with bony acromioplasty, left shoulder. 3. Open biceps tenodesis, left shoulder 4. Open distal clavicle excision, left shoulder Surgeon:: Jorge Amor MD Shop Manager(s):: Na Zendejas COMPUTER APPLICATIONS ENGINEER:: Geoffrey Palacios Anesthesia: GETA, regional (Interscalene nerve block) Estimated blood loss (mL): 50 Clinical Note:: Patient is a 49-year-old [id number] gentleman with history of pain and disability in his left shoulder for a long time. He had weakness and difficulty with the use of the arm. Preoperative evaluation was consistent with the above mentioned diagnosis. After discussion of the risks and benefits of the surgical versus nonsurgical management, he elected to proceed with surgical remediation. Please refer to my office note for full details. Operative findings:: There is a small full-thickness crescent-shaped non-retracted tear of the supraspinatus tendon. The biceps tendon showed synovitis in the bicipital groove. There is extensive subacromial and subdeltoid bursitis and the acromion had undersurface spurring over the anterolateral margin. The AC joint is arthritic with prominent osteophytes over the distal end of the clavicle. Operative note:: On the day of the procedure, the patient was positively identified in the preoperative area, the surgical site was marked and initialed by me. I performed a general physical examination, reviewed the consent form, his clinical and diagnostic information. We again had a detailed discussion about the diagnosis, natural history and management options including both nonsurgical and surgical options for his shoulder. Nonsurgical alternatives discussed include physical therapy, activity modification, NSAIDs and effective pain management. Given the symptoms, clinical and MRI findings, functional status, his age, patient is opting for surgical remediation.? I have discussed the surgical option best suited for his shoulder- an arthroscopic/open rotator cuff repair, glenohumeral joint debridement, distal clavicle excision, biceps tenotomy versus tenodesis and subacromial decompression. I told the patient that there were no guarantees with surgery; he could be no better or even worse. The complications discussed include but are not limited to infection, injury to nerves and blood vessels, bleeding, hematoma, tendon injury, fluid extravasation, chondrolysis, injury to the articular surface, instrument failure, DVT/PE, incomplete relief/continued pain, failure of the condition to improve, incomplete return of function, shoulder instability, arthritis, stiffness, adhesive capsulitis, complex regional pain syndrome (CRPS), recurrence, hardware failure, anchor pullout, acromion fracture, failure of the surgery to accomplish the desired goals, decreased use of the arm, loss of use of the arm, loss of the arm, loss of life. Likely need for further surgery in the future has been discussed. I have indicated to the patient where the proposed incisions would be made and also discussed the possibility of extending the incisions or performing an open surgery if needed to accomplish an effective repair/surgery.? With regards to the biceps tendon- depending on the findings at arthroscopy, we talked about tenodesis versus tenotomy and pros and cons of each procedure. We discussed possible deformity of the anterior arm and muscle cramps with tenotomy as opposed to possible screw site pain with tenodesis and the extra surgery involved.? Patient elected to have a biceps tenotomy and is not worried about cosmetic deformity. We talked about doing most of the
--- NOTE | 2020-01-28 14:40 | HMH.ANESII ---
[facility] Anesthesia Record Part II Discharge Time: 12:40 Destination: Surgical Day Care (OP Surgery) PACU nurse assessment reviewed?: Yes Patient Condition:: Good Anesthesia Complications:: None Swallowing reflex intact?: Yes Cyanosis?: No Blood Pressure: 127/72 Pulse Rate: 89 Temperature: 97.9 F Mental Status: Alert & Oriented Pain level:: 5 Nausea and/or vomitting:: None Intake, IV Amount: 100
--- NOTE | 2020-01-28 15:33 | SUR.OPER ---
Vancomycin 1GM powder pulled from [facility] per MD request at 1125. Vancomycin 1 gm powder sprinkled into patient's incision by MD. Removed med from OR [facility], can see it on [facility] screen, called pharmacy twice to have med put on patient's MAR. Two times Tyler tried to apply to patient's MAR, but I am still unable to chart. This note is witness that the patient did receive the med and in what route he received it, at 1130.
--- NOTE | 2020-01-28 16:12 | SUR.PHASEI ---
1252: Shawn Palacios CRNA in PACU to check on patient. CAT CRACKER OPERATOR aware of patient's breathing, decreased O2 saturation, COPD, pain and HTN. Shawn ordered metoprolol 5mg/5ml for tachycardia. Give up to 5mg/5ml IVP. Also ordered breathing treatment-duo neb. 1302: Shawn gave 3mg/3ml IVP metoprolol, HR 115, with instruction to give the other 2mg/2ml in 15 minutes if HR >85. 1307: Maribel from RT in PACU. Duo neb breathing treatment given. Albuterol breathing treatment given after duo neb treatment. 1317: Metoprolol 2mg/2ml IVP for HR 98. 1320: Shawn back in PACU, HR 85. Patient had HTN 223/190-229/106. Labetalol 10 mg IVP ordered with instruction to wait 10 minutes and give 5mg IVP if SBP >185. 1321: Labetalol 10 mg IVP given. 1334: HR-86, BP-135/66, RR-15, but pain remains 10 of 10. Pain meds causing patient to doze off and O2 decrease. Explained process to patient and meds each time a med was administered and what it was for.
== END 2020-01-28 16:14 | disposition home or self-care (01) ==
LOC: OR 06:14
PROVIDERS: PCP Emergency Medicine; Visit Provider Orthopaedic Surgery
PROC: (CPT 29805; principal; 2020-01-28 07:30)
DX: M75.122 Complete rotator cuff tear or rupture of left shoulder, not specified as traumatic (principal); M25.812 Other specified joint disorders, left shoulder; M19.012 Primary osteoarthritis, left shoulder; M75.22 Bicipital tendinitis, left shoulder; M75.52 Bursitis of left shoulder; M75.42 Impingement syndrome of left shoulder
CPT/HCPCS: 23420; 73020; 81001; 96374; C1713; J2405; J3370

== ENCOUNTER 2020-03-20 19:04 | Inpatient (IN) | payer MEDICARE, MEDICAID, SELFPAY ==
[2020-03-20] VITALS (17 sets, daily range): BP systolic 75–121; BP diastolic 35–82; PULSE 80–108; RESP 16–20; TEMP 36.7–36.9; O2SAT 88–95; BMI 41.8; BMI 43.0
--- NOTE | 2020-03-20 18:57 | ECG_ITS ---
APPROVED REPORT Exam: Resting ECG HR:109 bpm ECG Measurements Heart Rate 109 AXES NV 120 P 38 QRSd 126 QRS -6 QT 362 T -65 QTc 487 <Conclusion> Sinus tachycardia Right bundle branch block T wave abnormality, consider inferolateral ischemia Abnormal ECG Electronically signed by : Geoffrey Crandall, 03/21/2020 07:11:28
--- NOTE | 2020-03-20 19:08 | XR_ITS ---
PROCEDURE: XR CHEST PORTABLE CLINICAL HISTORY: cough COMPARISON: CR CXR1 CHEST-PORTABLE from 03/01/2017 CR CXR2V XR chest 2V from 03/22/2018 CR CXR2V XR chest 2V from 06/04/2018 CR XR CHEST 2V from 10/04/2019 FINDINGS: This study is very limited technically. Normal heart size. No obvious lobar consolidation or collapse. IMPRESSION: Limited exam which is grossly unremarkable. Dictated by: Martinez Li MD 03/21/2020 07:22 Martinez Li MD in [facility] 03/21/2020 07:22
--- NOTE | 2020-03-20 19:21 | HMH.EDCP ---
ED Disposition Condition on Discharge: guarded - Critical Care Critical Care Time: No <ErenyuvalMike valenzuela - Last Filed: 03/20/20 20:04> <Syed Riley - Last Filed: 03/20/20 22:01> Clinical Impression: Atypical chest pain, Chest pain, moderate coronary artery risk, Bilateral pulmonary embolism, Elevated troponin COPD (chronic obstructive pulmonary disease) Qualifiers: COPD type: unspecified COPD Qualified Code(s): J44.9 - Chronic obstructive pulmonary disease, unspecified Obesity Qualifiers: Obesity type: due to excess calories Obesity classification: adult class 3 (BMI >= 40) Serious obesity comorbidity presence: with serious comorbidity Body mass index: BMI 40.0-44.9 Qualified Code(s): E66.01 - Morbid (severe) obesity due to excess calories; Z68.41 - Body mass index (BMI) 40.0-44.9, adult Disposition: Admitted As Inpatient Attestation: On 03/20/20, the high probability of a clinically significant, sudden or life threatening deterioration of the following system(s) required my full and direct attention, intervention and personal management. The time I documented below is in addition to time spent performing reported procedures but includes the following listed in this critical care notation. Medical Decision Making - Medical Records Medical records reviewed: Yes: I reviewed the patient's medical records. - Inder Inquiry Pt receiving controlled substance: No - ECG Data Tracing #1 ECG initial impression date: 03/20/20 ECG initial impression time: 18:59 - Reevaluation(s) Time: 20:05 <ErenyuvalMike valenzuela - Last Filed: 03/20/20 20:04> - Lab Data Lab results reviewed: Yes: I reviewed the patient's lab results. Result diagrams: 03/20/20 20:00 03/20/20 20:00 - Radiology Data #1 Image(s): Chest Image Reviewed: Yes I reviewed the patient's radiology image Preliminary Findings: Abnormal (cm) - CT Data CT Scan: Chest Time Received: 21:[address] Reviewed: Yes: I have viewed the radiologist's interpretation Preliminary Findings: Abnormal (bilat pul emboli) - ECG Data Tracing #1 Normal Sinus Rhythm: Yes Ischemic changes: non-specific ST-T wave changes Conduction abnormalities present: RBBB - Physician Consults Physician Consulted: sidney Reason -: Pt condition <RosemarySyed garcia S - Last Filed: 03/20/20 22:01> Vital Signs: 03/20/20 19:04 03/20/20 19:05 03/20/20 19:27 Temperature 98.2 F Temperature Source Oral Pulse Rate [Right] 108 H 105 H Respiratory Rate 16 18 Blood Pressure [Right Arm] 102/72 L 100/64 L Blood Pressure Mean [Right Arm] 82 76 Blood Pressure Source [Right Arm] Automatic Cuff Blood Pressure Position [Right Arm] Sitting 02 Sat by Pulse Oximetry 88 L 94 L 92 L Oxygen Delivery Method Room Air Nasal Cannula Oxygen Flow Rate (LPM) 2 03/20/20 20:05 03/20/20 20:37 03/20/20 21:06 Temperature Temperature Source Pulse Rate [Right] 96 H 93 H 92 H Respiratory Rate 18 18 18 Blood Pressure [Right Arm] 119/68 103/82 L 106/61 L Blood Pressure Mean [Right Arm] 85 89 76 Blood Pressure Source [Right Arm] Blood Pressure Position [Right Arm] 02 Sat by Pulse Oximetry 94 L 95 93 L Oxygen Delivery Method Oxygen Flow Rate (LPM) 03/20/20 21:34 03/20/20 21:47 03/20/20 21:54 Temperature Temperature Source Pulse Rate [Right] 87 83 80 Respiratory Rate 18 18 18 Blood Pressure [Right Arm] 75/35 L 92/70 L 119/66 Blood Pressure Mean [Right Arm] 48 77 83 Blood Pressure Source [Right Arm] Blood Pressure Position [Right Arm] 02 Sat by Pulse Oximetry 92 L 92 L 93 L Oxygen Delivery Method Nasal Cannula Nasal Cannula Oxygen Flow Rate (LPM) 2 2 03/20/20 21:58 Temperature Temperature Source Pulse Rate [Right] 83 Respiratory Rate 18 Blood Pressure [Right Arm] 100/71 L Blood Pressure Mean [Right Arm] 80 Blood Pressure Source [Right Arm] Blood Pressure Position [Right Arm] 02 Sat by Pulse Oximetry 91 L Oxygen Delivery Method N
--- NOTE | 2020-03-20 20:04 | ECG_ITS ---
APPROVED REPORT Exam: Resting ECG HR:95 bpm ECG Measurements Heart Rate 95 AXES AZ 132 P 50 QRSd 126 QRS -5 QT 466 T -59 QTc 585 <Conclusion> Normal sinus rhythm Right bundle branch block T wave abnormality, consider inferolateral ischemia Abnormal ECG Electronically signed by : Geoffrey Crandall, 03/21/2020 07:11:19
[2020-03-20 20:05] LABS: Basophils # 0.1 K/mm3 (0-0.2); Basophils % 0.6 % (0.1-2.0); Eosinophils # 0.4 K/mm3 (0.0-0.4); Eosinophils % 2.3 % (0.1-12.0); Hematocrit 46.7 % (42.0-52.0); Hemoglobin 15.9 g/dL (14.1-18.0); Lymphocytes # 4.9 K/mm3 (0.7-4.5); Lymphocytes % 28.4 % (10-50); Mean Corpuscular HGB Conc 34.1 g/dL (31.8-35.4); Mean Corpuscular Hemoglobin 31.3 pg (27.0-31.2); Mean Corpuscular Volume 91.6 fl (80-94); Monocytes # 1.3 K/mm3 (0.1-1.0); Monocytes % 7.2 % (1.7-9.3); Neutrophils # 10.7 K/mm3 (1.8-7.8); Neutrophils % 61.5 % (37.0-80.0); Platelet Count 217 K/mm3 (142-424); Red Blood Count 5.09 M/mm3 (4.60-6.20); Red Cell Distribution Width 13.3 % (11.5-17.5); White Blood Count 17.4 K/mm3 (4.8-10.8)
[2020-03-20 20:06] LABS: MANUAL DIFFERENTIAL MANUAL DIFFERENTIAL (MANUAL DIFF)
[2020-03-20 20:14] LABS: Chloride 105 mmol/L (98-107); Sodium 135 mmol/L (136-145)
[2020-03-20 20:15] LABS: Potassium 4.2 mmoL/L (3.5-5.1)
[2020-03-20 20:17] LABS: Alanine Aminotransferase 22 U/L (12-78); Albumin Level 3.7 g/dl (3.5-5.0); Alkaline Phosphatase 68 U/L (38-126); Anion Gap 12.2 mEq/L (5-15); Aspartate Amino Transferase 39 U/L (17-59); Bilirubin,Total 0.7 mg/dl (0.2-1.3); Blood Urea Nitrogen 12 mg/dl (9-20); Carbon Dioxide 22 mmol/L (22.0-30.0); Creatinine Clearance Estimated 119 mL/min (50-200); Estimated Glomerular Filt Rate 103 ml/min (>60); GFR (African American) 124 ML/MIN (>60); Globulin 3.7 g/dL (1.3-3.2); Total Protein,Serum 7.4 g/dl (6.3-8.2)
[2020-03-20 20:18] LABS: Calcium 9.3 mg/dl (8.4-10.2); Glucose 129 mg/dl (74-100); Lipase 132 U/L (23-300)
[2020-03-20 20:22] LABS: Activated Partial Thrombo Time 23.5 seconds (23.6-34.0); INR 1.11 (0.9-1.1); Prothrombin Time 11.3 seconds (9.4-11.8)
[2020-03-20 20:27] LABS: NT Pro Brain Natriuretic Pep. 3920 pg/mL (0-125)
--- NOTE | 2020-03-20 20:27 | CT_ITS ---
PROCEDURE: CT ANGIO CHEST CLINCIAL INDICATION: SOA w/ chest pain Shortness of air with chest pain, smoker COMPARISON: No exams were available for comparison TECHNIQUE: IV Contrast: 70ML OPTIRAY 350 Axial images obtained with sagittal and coronal reformats. All CT scans at the facility use one or more dose reduction, viz: automated exposure control, ma/kV adjustment per patient size (including targeted exams where dose is matched to indication, i.e. head), or iterative reconstruction technique. FINDINGS: HEART AND MEDIASTINAL STRUCTURES: Multiple filling defects are present consistent with pulmonary emboli involving bilateral main pulmonary arteries and all lobar and segmental branches. There is straightening of the interventricular septum suggesting right heart strain with mild enlargement of the right ventricle. There is trace pericardial effusion. There are multiple small lymph nodes present within the mediastinum. LUNGS AND PLEURAL SPACES: Centrilobular and paraseptal emphysema with upper lobe prominence with mild diffuse bronchial thickening. Mild bronchiectasis in the right middle lobe. Overall there is a diffuse ground-glass attenuation of the lungs which is somewhat more focal and several areas within the right upper lobe peripherally in the left upper lobe peripherally. Scattered subpleural blebs are noted bilaterally somewhat diffuse in the upper lobes. No effusions. BONY STRUCTURES: Degenerative changes thoracic spine UPPER ABDOMEN: Diffuse hepatic steatosis. Mildly enlarged left adrenal gland. Distended gallbladder. ADDITIONAL FINDINGS: Scattered small nodes are present in the axilla and left supraclavicular region. IMPRESSION: 1. Extensive bilateral pulmonary emboli with findings suggestive of right heart strain. 2. Centrilobular and paraseptal emphysema. 3. Diffuse ground-glass attenuation of the upper lobes with scattered areas of more focal consolidation most prominent in the left upper lobe posteriorly. This could be due to areas of infarction or pneumonia. 4. Other nonacute findings as described above. Dictated by: Martinez Li MD 03/21/2020 07:03 Martinez Li MD in [facility] 03/21/2020 07:03
[2020-03-20 20:30] LABS: Troponin I 0.16 ng/ml (0.00-0.034)
[2020-03-20 20:34] LABS: Coronavirus 19 IgG Antibody Negative (Negative); Coronavirus 19 IgM Antibody Negative (Negative)
[2020-03-20 20:38] LABS: Eosinophils % 3 % (0-3); Lymphocytes % 36 % (10-50); Monocytes % 3 % (2-9); Neutrophils % 58 % (42-76); Total Cells Counted 100
[2020-03-20 20:39] LABS: Platelet Estimate Normal; Stomatocytes 1+
[2020-03-20 20:49] LABS: Thyroid Stimulating Hormone 2.63 uIU/mL (0.465-4.68)
--- NOTE | 2020-03-20 20:58 | PC.NURSE ---
speaking with SHAKEEL
--- NOTE | 2020-03-20 21:02 | PC.NURSE ---
LINWOOD Bryson speaking with Ken from pharmacy for heprin bolus and drip. recommended 7500units and drip at 2100units an hour Q6 ptt
--- NOTE | 2020-03-20 21:35 | PC.NURSE ---
pt fluids running at a slow drip via gravity, pt fluids put on pressure bag at this time
--- NOTE | 2020-03-20 22:26 | PC.NURSE ---
report called to LINWOOD Castro
--- NOTE | 2020-03-20 22:32 | INFXCTL.NOTE ---
nurse relayed pt met SIRS criteria. denied a source of infection at this time. no new orders.
[2020-03-20 22:38] LABS: Lactic Acid 1.7 mmol/L (0.7-2.1)
--- NOTE | 2020-03-20 22:48 | PC.NURSE ---
PT ARRIVED TO THE FLOOR VIA STRETCHER WITH STAFF FROM ED AT [id number]
[2020-03-20 22:49] LABS: Troponin I 0.24 ng/ml (0.00-0.034)
[2020-03-21] VITALS (34 sets, daily range): BP systolic 97–179; BP diastolic 63–97; PULSE 80–94; RESP 20–26; TEMP 36.4–36.9; O2SAT 91–98; BMI 43.2
[2020-03-21 01:43] LABS: Troponin I 0.23 ng/ml (0.00-0.034)
[2020-03-21 03:40] LABS: Activated Partial Thrombo Time 51.2 seconds (23.6-34.0)
--- NOTE | 2020-03-21 04:07 | PC.NURSE ---
0342 malena from pharmacy, orders to increase 2250 units/hr on heparin drip
[2020-03-21 06:02] LABS: Basophils # 0.1 K/mm3 (0-0.2); Basophils % 0.7 % (0.1-2.0); Eosinophils # 0.3 K/mm3 (0.0-0.4); Eosinophils % 2.3 % (0.1-12.0); Hematocrit 44.6 % (42.0-52.0); Hemoglobin 15.1 g/dL (14.1-18.0); Lymphocytes # 4.6 K/mm3 (0.7-4.5); Lymphocytes % 30.5 % (10-50); Mean Corpuscular HGB Conc 33.7 g/dL (31.8-35.4); Mean Corpuscular Hemoglobin 31.2 pg (27.0-31.2); Mean Corpuscular Volume 92.3 fl (80-94); Mean Platelet Volume 9.1 fl (7.4-10.4); Monocytes # 0.8 K/mm3 (0.1-1.0); Monocytes % 5.2 % (1.7-9.3); Neutrophils # 9.2 K/mm3 (1.8-7.8); Neutrophils % 61.2 % (37.0-80.0); Platelet Count 196 K/mm3 (142-424); Red Blood Count 4.83 M/mm3 (4.60-6.20); Red Cell Distribution Width 13.7 % (11.5-17.5); White Blood Count 15.1 K/mm3 (4.8-10.8)
[2020-03-21 06:03] LABS: Chloride 106 mmol/L (98-107)
[2020-03-21 06:04] LABS: Potassium 4.1 mmoL/L (3.5-5.1); Sodium 135 mmol/L (136-145)
[2020-03-21 06:06] LABS: Blood Urea Nitrogen 11 mg/dl (9-20); Creatinine Clearance Estimated 115 mL/min (50-200); Estimated Glomerular Filt Rate 103 ml/min (>60); GFR (African American) 124 ML/MIN (>60)
[2020-03-21 06:07] LABS: Anion Gap 9.1 mEq/L (5-15); Calcium 9.2 mg/dl (8.4-10.2); Carbon Dioxide 24 mmol/L (22.0-30.0); Glucose 172 mg/dl (74-100); Magnesium 1.8 mg/dl (1.6-2.3)
[2020-03-21 06:20] LABS: MANUAL DIFFERENTIAL MANUAL DIFFERENTIAL (MANUAL DIFF)
--- NOTE | 2020-03-21 06:23 | PC.NURSE ---
pt has had no complaints of chest pain since arriving to floor, pt does complain of SOA with exertion, O2 sats are 88% to 92% on 3L NC, pt complained of back and shoulder pain, solutions developer doctor was paged, no new orders received, pt refused acetaminophen when offered, pt bathed at bedside with assistance from , heparin currently running at 2250 units/hr
--- NOTE | 2020-03-21 06:25 | PC.NURSE ---
Vimal ROGEL NOTIFIED OF CONSULT.
--- NOTE | 2020-03-21 07:15 | HMH.PHAVTE ---
[facility] Pharmacy VTE Monitoring - Patient Demographics Admission date: 03/20/20 Report Date: 03/21/20 Time: 07:15 Allergies/Adverse Reactions: Patient Allergies codeine [CODEINE] Adverse Reaction (Mild, Verified 03/21/20 00:00) nausea Height: 1.8 m Weight: 140.16 kg Patient Problems: Current Active Problems Atypical chest pain (Acute) Chest pain, moderate coronary artery risk (Acute) COPD (chronic obstructive pulmonary disease) (Acute) Bilateral pulmonary embolism (Acute) Elevated troponin (Acute) Obesity (Acute) - VTE Risk Labs: VTE Related Lab Results Hgb 15.1 g/dL (14.1-18.0) 03/21/20 05:48 Hct 44.6 % (42.0-52.0) 03/21/20 05:48 Plt Count 196 K/mm3 (142-424) 03/21/20 05:48 PT 11.3 seconds (9.4-11.8) 03/20/20 20:00 INR 1.11 (0.9-1.1) H 03/20/20 20:00 APTT 51.2 seconds (23.6-34.0) H* D 03/21/20 03:10 BUN 11 mg/dl (9-20) 03/21/20 05:48 Creatinine 0.80 mg/dl (0.66-1.25) 03/21/20 05:48 Estimated Creat Clear 115 mL/min (50-200) 03/21/20 05:48 Was VTE Risk Assessment Performed: Yes VTE Score: 9 VTE Risk Level: Moderate Risk - Prophylaxis VTE Prophylaxis Ordered?: Yes Types of VTE Prophylaxis: TEDS Knee High, Pharmacological Location of Applied Device: Bilateral Lower Extremeties Pharmacologic Type: Heparin
[2020-03-21 07:44] LABS: Eosinophils % 2 % (0-3); Lymphocytes % 30 % (10-50); Monocytes % 5 % (2-9); Neutrophils % 63 % (42-76); Platelet Estimate Normal; RBC Morphology Normal; Total Cells Counted 100
--- NOTE | 2020-03-21 07:44 | HMH.PHAINT ---
MEDICATION RECONCILIATION COMPLETED ON PATIENT USING EXTERNAL FILL HISTORY FROM PHARMACY AND LIST FROM MD OFFICE. -DIDI HERNANDEZD
--- NOTE | 2020-03-21 08:00 | CA_ITS ---
APPROVED REPORT EXAM: Comprehensive 2D, Doppler, and color-flow Echocardiogram Production Engineer: Venita Lux RDCS Ht: 5 ft 11 in Wt: 309lbs BSA: 2.54 BP: 100/64 mmHg Indications: PE CAD COPD HTN HLP 2D Dimensions LVOT 1.93 cm (M/F) 1.5-2.5 M-Mode Dimensions RVDd 4.60 cm (0.9-2.6) LVDd 3.70 cm (3.5-5.7) LVDs 2.50 cm (3.5-5.7) IVSd 1.29 cm (0.6-1.1) PWd 1.16 cm (0.6-1.1) EF (Teich) 61.60% FS 32.40% EDV (Teich) 58.10 mL ESV (Teich) 22.30 mL LV Diastology E/A Ratio 0.63 Mitral Valve MV A Velocity 68.00 (40-130 cm/s) Left Ventricle Left atrium is mildly enlarged, left ventricle is normal size, mild concentric left ventricular hypertrophy, visually estimated ejection fraction 55%, there is abnormal septal motion. Grade 1 diastolic dysfunction seen without tissue Doppler evidence of raise left atrial pressure. Right Ventricle Right atrium and right ventricle are moderately enlarged, contractility of the right ventricle is moderately reduced. Aortic Valve Aortic valve is minimally thickened and fibrosed, there is no aortic stenosis or aortic insufficiency. Mitral Valve Mitral valve is grossly normal, there is mild mitral regurgitation. Tricuspid Valve Tricuspid valve is grossly normal, there is mild tricuspid regurgitation, calculated right ventricular systolic pressure is 55 mmHg. Pulmonic Valve Pulmonic valve is poorly visualized. Great Vessels Aortic root is normal size. Pericardium No significant pericardial effusion noted. Conclusion 1. Biatrial enlargement, normal left ventricular size, mild concentric left ventricular hypertrophy, visually estimated ejection fraction 55% with no regional wall motion abnormality, there is abnormal septal motion, grade 1 diastolic dysfunction seen without tissue Doppler evidence of raise left atrial pressure. 2. Moderately enlarged right ventricle with moderate reduction in right ventricular systolic function. 3. Mild mitral and tricuspid regurgitation, calculated right ventricular systolic pressure is 55 mmHg. 4. No significant pericardial effusion noted. Electronically signed by : Jovany Munson, 03/21/2020 11:51:56
--- NOTE | 2020-03-21 08:00 | CA_ITS ---
APPROVED REPORT Bilateral Lower Extremity Venous Study for DVT. Search Director: MICHELE Indications Lower Extremity Pain: Right Lower Extremity Edema: Right Pulmonary Embolism Shortness of breath Current Smoker History of Smoking CAD pul emboli Vein Imaging CFV (R): compressive, spontaneous, phasic, augmentation FEM (R): compressive, spontaneous, phasic, augmentation POP (R): Partially Compressible PTV (R): Partially Compressible GSV (R): Compressible Peroneals (R):Not Visualized GAS (R): Compressible CFV (L): compressive, spontaneous, phasic, augmentation FEM (L): compressive, spontaneous, phasic, augmentation POP (L): compressive, spontaneous, phasic, augmentation PTV (L): Partially Compressible GSV (L): Partially Compressible Peroneals (L):Not Visualized Findings Technically difficult study secondary to body habitus. Positive for DVT right popliteal vein and posterior tibial vein. Positive for DVT of the left PTV and positive for SVT of the left greater sapheneous vein in the lower extremity. Reported to Dr. Riley patient is positive for Pulmonary embolism Conclusion Technically difficult study secondary to body habitus. Positive for DVT right popliteal vein and posterior tibial vein. Positive for DVT of the left PTV and positive for SVT of the left greater sapheneous vein in the lower extremity. Reported to Dr. Riley patient is positive for Pulmonary embolism Electronically signed by : Martinez Li MD 03/21/2020 16:34:35
--- NOTE | 2020-03-21 08:02 | HMH.CNCARD ---
History of Present Illness Consult date: 03/21/20 Requesting physician: Syed Riley Consult reason: shortness of breath Chief complaint: PULIDO Additional Medical History:: 1. Hypertension 2. Hyperlipidemia 3. Psoriasis, topical therapy only per patient 4. Crohn's disease, controls with diet 5. Tobacco use, 1 pack/day x 40 years 6. Obstructive sleep apnea, CPAP therapy discontinued approximately a year ago per patient due to insurance issue 7. Family history of coronary artery disease in his father in his 50s 8. History of elevated blood sugar but no history of diabetes per patient 9. History of myocardial infarction, 2009 A. Reportedly had cardiac catheterization in [place] by Dr. Torres with no need for intervention B. History of Lexiscan Myoview and echocardiogram, May/2017, no ischemia with normal ejection fraction and mild hypertensive changes 10. Long-term disability due to chronic back issues with history of surgery 11. Remote history of right lower extremity DVT with 2-week history of anticoagulation therapy 12. History of CVA per patient A. Follows with Dr. Hill. 13. History of depression 14. History of GERD History of present illness: 49-year-old white male with history as noted above presented to the emergency department for a 5-day history of increasing shortness of breath with exertion. Patient does relate a history of right lower extremity DVT in the past with some chronic right lower extremity swelling since then. Evaluation in the ER showed evidence of bilateral pulmonary emboli and patient was started on heparin IV. Patient's troponins did return elevated but this is felt to be related to cardiac strain in the setting of bilateral pulmonary emboli. EKG shows sinus tachycardia with right bundle branch block. Echocardiogram has been performed with results pending at this time. [facility] History Medical History: Reports:: Depression, Diabetes Mellitus Type 2, Gastroesophageal Reflux Disease(GERD), Hyperlipidemia, Hypertension, Myocardial Infarction, Transient Ischemic Attacks (TIA) Denies:: Cancer, Diabetes Mellitus Type 1, Internal Pacemaker, MRSA, Seizures *Have you ever received a pneumonia vaccine?: Yes (2 years ago) *Have you received a flu vaccine this season?: Yes Other Medical History: Reports: Arthritis, Sinus Problems. Denies: Blood Transfusion Reaction Laterality Cases: Left: Arthroscopy Shoulder, Other, Bilateral: Tonsillectomy Other Surgeries: Yes: Angiogram, Cardiac Surgery, Colonoscopy, Hernia Repair, Other (spinal cord surgery). No: Pacemaker Amputation: No Fractures: Yes (ankles,tail bone,hand) - *Social History Last grade of school completed: 11th or 12th Smoking Status: Current every day smoker Tobacco Type: cigarettes # Packs/Day (cigarettes): 1 Alcohol Intake: former Alcohol Intake Frequency:: other Substance Use Type: denies use *Occupational Status:: disabled Housing: house Household Members: spouse, children *Travel in the last 8 weeks: None - Psychiatric History Pschychiatric History:: Reports:: Depression Family Hx:: Diabetes, Heart Attack, Hyperlipidemia, Hypertension, Stroke, Alcoholism Meds Home Medications Medication Instructions Recorded Confirmed Type Aspirin [Low Dose Aspirin EC] 81 mg PO DAILY 03/22/18 03/21/20 History gabapentin 800 mg tablet 800 mg PO TID #90 tab 12/03/19 03/21/20 Rx Trazodone HCl 50 mg PO DAILY 01/24/20 03/21/20 History hydroCHLOROthiazide 12.5 mg PO DAILY 01/24/20 03/21/20 History [Hydrochlorothiazide 12.5mg Tab] lisinopriL [Prinivil 10mg Tablet] 10 mg PO DAILY 01/24/20 03/21/20 History hydrocodone 5 mg-acetaminophen 325 1 tab PO TID PRN #90 tab 02/01/20 03/21/20 Rx mg tablet Allergies Allergy/AdvReac Type Severity Reaction Status Date / Time codeine [CODEINE] AdvReac Mild nausea Verified 03/21/20 00:00 Exam Vital signs and Labs for Last 24 Hours: Temp Pulse Resp BP Pulse Ox 98.0 F 91 H 22 112/64 92 L
--- NOTE | 2020-03-21 08:31 | HMH.HP ---
*Admission Date: 03/20/20 *Chief complaint: soa *History of present illness: 49-year-old male presented to the ED complaining of acutely worsening shortness of breath. Patient states that 2 days ago he noted this acute onset shortness of breath, not associated with any fevers any chills. with history of smoking, more than [id number] smoking history, psoriasis, questionable history of DVT 6 years ago, hypertension, and hyper glycemia. Pt admitted for PE and ameya dvt, cardiology and pulm consult. [facility] History I have reviewed the patient's past medical history: Yes Medical History: Reports:: Depression, Diabetes Mellitus Type 2, Gastroesophageal Reflux Disease(GERD), Hyperlipidemia, Hypertension, Myocardial Infarction, Transient Ischemic Attacks (TIA) Denies:: Cancer, Diabetes Mellitus Type 1, Internal Pacemaker, MRSA, Seizures *Have you ever received a pneumonia vaccine?: Yes (2 years ago) *Have you received a flu vaccine this season?: Yes Other Medical History: Reports: Arthritis, Sinus Problems. Denies: Blood Transfusion Reaction Laterality Cases: Left: Arthroscopy Shoulder, Other, Bilateral: Tonsillectomy Other Surgeries: Yes: Angiogram, Cardiac Surgery, Colonoscopy, Hernia Repair, Other (spinal cord surgery). No: Pacemaker Amputation: No Fractures: Yes (ankles,tail bone,hand) - *Social History Last grade of school completed: 11th or 12th Smoking Status: Current every day smoker Tobacco Type: cigarettes # Packs/Day (cigarettes): 1 Alcohol Intake: former Alcohol Intake Frequency:: other Substance Use Type: denies use *Occupational Status:: disabled Housing: house Household Members: spouse, children *Travel in the last 8 weeks: None - Psychiatric History Pschychiatric History:: Reports:: Depression Family Hx:: Diabetes, Heart Attack, Hyperlipidemia, Hypertension, Stroke, Alcoholism Review of Systems - Review of Systems Review of systems:: pertinent systems reviewed and negative unless documented below - Constitutional Denies body ache(s) - Eyes Denies blurry vision - ENT Denies bleeding gums, Denies post nasal drip - *Cardiovascular Reports shortness of breath, Reports shortness of breath with activity, Denies chest pain at rest - *Respiratory Reports shortness of breath, Reports shortness of breath with activity - *Gastrointestinal Denies nausea, Denies vomiting - *Genitourinary Denies urinary frequency - *Musculoskeletal Denies body aches - Integumentary/Breasts Reports rash - *Neurologic Denies headache(s), Denies fainting - Psychiatric Denies anxiety - Endocrine Denies flushing - Hematologic/Lymphatic Denies enlarged lymph nodes - Allergic/Immunologic Denies itchy eyes Meds Home Medications Medication Instructions Recorded Confirmed Type Aspirin [Low Dose Aspirin EC] 81 mg PO DAILY 03/22/18 03/21/20 History gabapentin 800 mg tablet 800 mg PO TID #90 tab 12/03/19 03/21/20 Rx Trazodone HCl 50 mg PO DAILY 01/24/20 03/21/20 History hydroCHLOROthiazide 12.5 mg PO DAILY 01/24/20 03/21/20 History [Hydrochlorothiazide 12.5mg Tab] lisinopriL [Prinivil 10mg Tablet] 10 mg PO DAILY 01/24/20 03/21/20 History hydrocodone 5 mg-acetaminophen 325 1 tab PO TID PRN #90 tab 02/01/20 03/21/20 Rx mg tablet Allergies Allergy/AdvReac Type Severity Reaction Status Date / Time codeine [CODEINE] AdvReac Mild nausea Verified 03/21/20 00:00 Exam Vital signs and Labs for Last 24 Hours: Temp Pulse Resp BP Pulse Ox 98.4 F 91 H 20 97/63 L 96 03/21/20 08:00 03/21/20 08:00 03/21/20 08:00 03/21/20 08:00 03/21/20 08:00 Laboratory Results - last 24 hr 03/20/20 19:10: Lactate 1.7 03/20/20 20:00: WBC 17.4 H, RBC 5.09, Hgb 15.9, Hct 46.7, MCV 91.6, MCH 31.3 H, MCHC 34.1, RDW 13.3, Plt Count 217, MPV 9.0, Neut % (Auto) 61.5, Lymph % (Auto) 28.4, [place] % (Auto) 7.2, Eos % (Auto) 2.3, Baso % (Auto) 0.6, Neut # (Auto) 10.7 H, Lymph # (Auto) 4.9 H, [place] # (Auto) 1.3 H, Eos # (Auto) 0.4,
--- NOTE | 2020-03-21 09:05 | HMH.PHAHEP ---
[facility] Pharmacy Heparin Dosing - Demographic Data Admission date:: 03/20/20 Date: 03/21/20 Time: 09:05 Allergies/Adverse Reactions: Allergies Allergy/AdvReac Type Severity Reaction Status Date / Time codeine [CODEINE] AdvReac Mild nausea Verified 03/21/20 00:00 Height: 1.8 m Weight: 140 kg - Indication Medication therapy:: Heparin Current Indications:: BILATERAL PE Patient Problems: Current Active Problems Atypical chest pain (Acute) Chest pain, moderate coronary artery risk (Acute) COPD (chronic obstructive pulmonary disease) (Acute) Bilateral pulmonary embolism (Acute) Elevated troponin (Acute) Obesity (Acute) CVA?: No Bleeding problem?: No Kidney disease?: No [place]?: No Desired PTT range:: 60-80 seconds - Labs Anticoagulation Lab Results:: 03/20/20 03/21/20 20:00 05:48 Hgb 15.9 15.1 Hct 46.7 44.6 Plt Count 217 196 - Monitoring Dose Monitor 1 Date: 03/20/20 Time: 20:00 PTT Result:: 23.5 Infusion Rate:: 42 ML/LD=8581 UNITS/HR Comment:: BASELINE PTT 7,500 UNIT BOLUS EWN=636 Dose Monitor 2 Date: 03/21/20 Time: 03:10 PTT Result:: 51.2 Infusion Rate:: 45 ML/HR = 2250 UNITS/HR Comment:: XOS=853 - Core Measures Is INR > or = 2 at discharge?: No Most Recent Labs:: Laboratory Results - last 24 hr 03/20/20 19:10: Lactate 1.7 03/20/20 20:00: WBC 17.4 H, RBC 5.09, Hgb 15.9, Hct 46.7, MCV 91.6, MCH 31.3 H, MCHC 34.1, RDW 13.3, Plt Count 217, MPV 9.0, Neut % (Auto) 61.5, Lymph % (Auto) 28.4, [place] % (Auto) 7.2, Eos % (Auto) 2.3, Baso % (Auto) 0.6, Neut # (Auto) 10.7 H, Lymph # (Auto) 4.9 H, [place] # (Auto) 1.3 H, Eos # (Auto) 0.4, Baso # (Auto) 0.1, Total Counted 100, Neutrophils % (Manual) 58, Lymphocytes % (Manual) 36, Monocytes % (Manual) 3, Eosinophils % (Manual) 3, Platelet Estimate Normal, Stomatocytes 1+ 03/20/20 20:00: Sodium 135 L, Potassium 4.2, Chloride 105, Carbon Dioxide 22, Anion Gap 12.2, BUN 12, Creatinine 0.80, Estimated Creat Clear 119, Estimated GFR 103, Est GFR ( Amer) 124, Glucose 129 H, Calcium 9.3, Total Bilirubin 0.7, AST 39, ALT 22, Alkaline Phosphatase 68, Troponin I 0.16 H, Total Protein 7.4, Albumin 3.7, Globulin 3.7 H, Albumin/Globulin Ratio 1.0 L, TSH 2.63 03/20/20 20:00: PT 11.3, INR 1.11 H, APTT 23.5 L 03/20/20 20:00: NT-Pro-B Natriuret Pep 3920 H, Lipase 132 03/20/20 20:00: SARS-CoV-2 IgG Ab (Rapid) Negative, SARS-CoV-2 IgM Ab (Rapid) Negative 03/20/20 22:23: Troponin I 0.24 H 03/21/20 01:15: Troponin I 0.23 H 03/21/20 03:10: APTT 51.2 H* D 03/21/20 05:48: WBC 15.1 H, RBC 4.83, Hgb 15.1, Hct 44.6, MCV 92.3, MCH 31.2, MCHC 33.7, RDW 13.7, Plt Count 196, MPV 9.1, Neut % (Auto) 61.2, Lymph % (Auto) 30.5, [place] % (Auto) 5.2, Eos % (Auto) 2.3, Baso % (Auto) 0.7, Neut # (Auto) 9.2 H, Lymph # (Auto) 4.6 H, [place] # (Auto) 0.8, Eos # (Auto) 0.3, Baso # (Auto) 0.1, Total Counted 100, Neutrophils % (Manual) 63, Lymphocytes % (Manual) 30, Monocytes % (Manual) 5, Eosinophils % (Manual) 2, Platelet Estimate Normal, RBC Morphology Normal 03/21/20 05:48: Sodium 135 L, Potassium 4.1, Chloride 106, Carbon Dioxide 24, Anion Gap 9.1, BUN 11, Creatinine 0.80, Estimated Creat Clear 115, Estimated GFR 103, Est GFR ( Amer) 124, Glucose 172 H D, Calcium 9.2, Magnesium 1.8 If INR was < than 2.0 why was therapy stopped?: SWITCHED TO XARELTO Were Heparin and Warfarin started on the same day?: No If not, why?: STOPPED HEPARIN TODAY AND STARTING XARELTO VINAYAK
[2020-03-21 09:32] LABS: Lactic Acid 1.1 mmol/L (0.7-2.1)
[2020-03-21 09:45] LABS: Troponin I 0.35 ng/ml (0.00-0.034)
--- NOTE | 2020-03-21 12:06 | HMH.PHAHEP ---
[facility] Pharmacy Heparin Dosing - Demographic Data Admission date:: 03/20/20 Date: 03/21/20 Time: 12:06 Allergies/Adverse Reactions: Allergies Allergy/AdvReac Type Severity Reaction Status Date / Time codeine [CODEINE] AdvReac Mild nausea Verified 03/21/20 00:00 Height: 1.8 m Weight: 140 kg - Indication Medication therapy:: Heparin Patient Problems: Current Active Problems Atypical chest pain (Acute) Chest pain, moderate coronary artery risk (Acute) COPD (chronic obstructive pulmonary disease) (Acute) Bilateral pulmonary embolism (Acute) Elevated troponin (Acute) Obesity (Acute) CVA?: No Bleeding problem?: No Kidney disease?: No [place]?: No Desired PTT range:: 60-80 seconds - Labs Anticoagulation Lab Results:: 03/20/20 03/21/20 20:00 05:48 Hgb 15.9 15.1 Hct 46.7 44.6 Plt Count 217 196 - Monitoring Dose Monitor 1 Date: 03/21/20 Time: 03:10 PTT Result:: 51.2 plt 196k Infusion Rate:: 45ml/hr (2250 units/hr) Dose Monitor 2 Date: 03/21/20 Time: 16:00 PTT Result:: 37.2 Infusion Rate:: 48 ML/HR (2400 UNITS/HR) ALSO REBOLUSED AT 5000 UNITS X 1 DOSE HEPARIN Dose Monitor 3 Date: 03/21/20 Time: 23:00 PTT Result:: 44.6 Infusion Rate:: INCREASED TO 54 UNITS/HR, NO REBOLUS DUE TO PTT BEING CLOSE TO 45. Dose Monitor 4 Date: 03/22/20 Time: 06:00 PTT Result:: 44.4 Infusion Rate:: INCREASED TO 58 ML/HR (2900 UNITS/HR) NO REBOLUS PTT ~45. Dose Monitor 5 Date: 03/22/20 Time: 15:00 PTT Result:: 48.2 Infusion Rate:: 3150 UNITS/HR Dose Monitor 6 Date: 03/22/20 Time: 22:00 PTT Result:: 53.2 Infusion Rate:: STOP PER DR. GRACE, CHANGE TO LOVENOX AFTER HE CONSULTED DR. POTTER THIS EVENING. Dose Monitor 7 Date: 03/23/20 Time: 06:00 PTT Result:: CANCELED - Core Measures Is INR > or = 2 at discharge?: No Most Recent Labs:: Laboratory Results - last 24 hr 03/20/20 19:10: Lactate 1.7 03/20/20 20:00: WBC 17.4 H, RBC 5.09, Hgb 15.9, Hct 46.7, MCV 91.6, MCH 31.3 H, MCHC 34.1, RDW 13.3, Plt Count 217, MPV 9.0, Neut % (Auto) 61.5, Lymph % (Auto) 28.4, [place] % (Auto) 7.2, Eos % (Auto) 2.3, Baso % (Auto) 0.6, Neut # (Auto) 10.7 H, Lymph # (Auto) 4.9 H, [place] # (Auto) 1.3 H, Eos # (Auto) 0.4, Baso # (Auto) 0.1, Total Counted 100, Neutrophils % (Manual) 58, Lymphocytes % (Manual) 36, Monocytes % (Manual) 3, Eosinophils % (Manual) 3, Platelet Estimate Normal, Stomatocytes 1+ 03/20/20 20:00: Sodium 135 L, Potassium 4.2, Chloride 105, Carbon Dioxide 22, Anion Gap 12.2, BUN 12, Creatinine 0.80, Estimated Creat Clear 119, Estimated GFR 103, Est GFR ( Amer) 124, Glucose 129 H, Calcium 9.3, Total Bilirubin 0.7, AST 39, ALT 22, Alkaline Phosphatase 68, Troponin I 0.16 H, Total Protein 7.4, Albumin 3.7, Globulin 3.7 H, Albumin/Globulin Ratio 1.0 L, TSH 2.63 03/20/20 20:00: PT 11.3, INR 1.11 H, APTT 23.5 L 03/20/20 20:00: NT-Pro-B Natriuret Pep 3920 H, Lipase 132 03/20/20 20:00: SARS-CoV-2 IgG Ab (Rapid) Negative, SARS-CoV-2 IgM Ab (Rapid) Negative 03/20/20 22:23: Troponin I 0.24 H 03/21/20 01:15: Troponin I 0.23 H 03/21/20 03:10: APTT 51.2 H* D 03/21/20 05:48: WBC 15.1 H, RBC 4.83, Hgb 15.1, Hct 44.6, MCV 92.3, MCH 31.2, MCHC 33.7, RDW 13.7, Plt Count 196, MPV 9.1, Neut % (Auto) 61.2, Lymph % (Auto) 30.5, [place] % (Auto) 5.2, Eos % (Auto) 2.3, Baso % (Auto) 0.7, Neut # (Auto) 9.2 H, Lymph # (Auto) 4.6 H, [place] # (Auto) 0.8, Eos # (Auto) 0.3, Baso # (Auto) 0.1, Total Counted 100, Neutrophils % (Manual) 63, Lymphocytes % (Manual) 30, Monocytes % (Manual) 5, Eosinophils % (Manual) 2, Platelet Estimate Normal, RBC Morphology Normal 03/21/20 05:48: Sodium 135 L, Potassium 4.1, Chloride 106, Carbon Dioxide 24, Anion Gap 9.1, BUN 11, Creatinine 0.80, Estimated Creat Clear 115, Estimated GFR 103, Est GFR ( Amer) 124, Glucose 172 H D, Calcium 9.2, Magnesium 1.8 03/21/20 09:10: Troponin I 0.35 H 03/21/20 09:10: Lactate 1.1 Were Heparin
--- NOTE | 2020-03-21 12:14 | HMH.PULMCON ---
*Admission Date: 03/20/20 *Reason for consult:: Acute hypoxic respiratory failure *History of present illness: Mr. Workman is a 49-year-old male with history of smoking, more than [id number]-[id number] smoking history, psoriasis currently on topical medications (recently used Biologics), questionable history of DVT 6 years ago, hypertension, hyper glycemia presented to the ED complaining of acutely worsening shortness of breath. Patient states that 2 days ago he noted this acute onset shortness of breath, not associated with any fevers any chills. Shortness of breath has been relatively stable for the last 2 days, however he is not getting any better and as per his daughter's advice he presented to the ED. on presentation to the ED patient's vitals appear stable but however an echocardiogram noted to have right heart strain, elevated troponins and elevated BNP on the lab, he also found to have hypoxic and needing oxygen and he never uses oxygen at home. Patient denies any subjective fevers, denies chills, denies night sweats, denies prodctive cough, denies hemoptysis,. CT chest with contrast showed bilateral segmental submassive PE. Patient was admitted to the hospital and pulmonary was called for further evaluation of his acute hypoxic respiratory failure. Denies any personal history of cancer. Signal family history of blood clots in her father doing his early 40s. No family history of autoimmune diseases. Patient had a left shoulder reconstruction surgery in December and he has been relatively sedentary since then however he has been walking around. [facility] History Medical History: Reports:: Depression, Diabetes Mellitus Type 2, Gastroesophageal Reflux Disease(GERD), Hyperlipidemia, Hypertension, Myocardial Infarction, Transient Ischemic Attacks (TIA) Denies:: Cancer, Diabetes Mellitus Type 1, Internal Pacemaker, MRSA, Seizures *Have you ever received a pneumonia vaccine?: Yes (2 years ago) *Have you received a flu vaccine this season?: Yes Other Medical History: Reports: Arthritis, Sinus Problems. Denies: Blood Transfusion Reaction Laterality Cases: Left: Arthroscopy Shoulder, Other, Bilateral: Tonsillectomy Other Surgeries: Yes: Angiogram, Cardiac Surgery, Colonoscopy, Hernia Repair, Other (spinal cord surgery). No: Pacemaker Amputation: No Fractures: Yes (ankles,tail bone,hand) - *Social History Last grade of school completed: 11th or 12th Smoking Status: Current every day smoker Tobacco Type: cigarettes # Packs/Day (cigarettes): 1 Alcohol Intake: former Alcohol Intake Frequency:: other Substance Use Type: denies use *Occupational Status:: disabled Housing: house Household Members: spouse, children *Travel in the last 8 weeks: None - Psychiatric History Pschychiatric History:: Reports:: Depression Family Hx:: Diabetes, Heart Attack, Hyperlipidemia, Hypertension, Stroke, Alcoholism [facility] Pulmonology ROS - Review of Systems Review of systems:: pertinent systems reviewed and negative unless documented below (14 point review of systems performed, negative except as mentioned in the HPI) - *Neurologic Denies headache(s), Denies fainting Meds Home Medications Medication Instructions Recorded Confirmed Type Aspirin [Low Dose Aspirin EC] 81 mg PO DAILY 03/22/18 03/21/20 History gabapentin 800 mg tablet 800 mg PO TID #90 tab 12/03/19 03/21/20 Rx Trazodone HCl 50 mg PO DAILY 01/24/20 03/21/20 History hydroCHLOROthiazide 12.5 mg PO DAILY 01/24/20 03/21/20 History [Hydrochlorothiazide 12.5mg Tab] lisinopriL [Prinivil 10mg Tablet] 10 mg PO DAILY 01/24/20 03/21/20 History hydrocodone 5 mg-acetaminophen 325 1 tab PO TID PRN #90 tab 02/01/20 03/21/20 Rx mg tablet Allergies Allergy/AdvReac Type Severity Reaction Status Date / Time codeine [CODEINE] AdvReac Mild nausea Verified 03/21/20 00:00 Exam Vital signs and Labs for Last 24 Hours: Temp Pulse Resp BP Pulse Ox 97.8 F 91 H 20 97/63 L 92 L 03/21/20 11:13 03/21/20 08:00 08
--- NOTE | 2020-03-21 13:14 | CA_ITS ---
APPROVED REPORT Bilateral Upper Extremity Venous Study for DVT. 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 Normal flow, augmentation and compression is seen. No evidence of Deep Vein Thrombosis. No abnormalities are demonstrated. SCV (R): Normal phasic flow is seen. Normal flow, augmentation and compression is seen. No evidence of Deep Vein Thrombosis. No abnormalities are demonstrated. Axillary (R): Normal phasic flow is seen. Normal flow, augmentation and compression is seen. No evidence of Deep Vein Thrombosis. No abnormalities are demonstrated. Brachial (R): Normal phasic flow is seen. Normal flow, augmentation and compression is seen. No evidence of Deep Vein Thrombosis. No abnormalities are demonstrated. Cephalic (R): Compressible Radial (R): Compressible Ulnar (R): Compressible IJV (L): Normal phasic flow is seen. Normal flow, augmentation and compression is seen. No evidence of Deep Vein Thrombosis. No abnormalities are demonstrated. SCV (L): Normal phasic flow is seen. Normal flow, augmentation and compression is seen. No evidence of Deep Vein Thrombosis. No abnormalities are demonstrated. Axillary (L): Normal phasic flow is seen. Normal flow, augmentation and compression is seen. No evidence of Deep Vein Thrombosis. No abnormalities are demonstrated. Brachial (L): Normal phasic flow is seen. Normal flow, augmentation and compression is seen. No evidence of Deep Vein Thrombosis. No abnormalities are demonstrated. Cephalic (L): Compressible Radial (L): Compressible Ulnar (L): Compressible Findings Duplex evaluation of the right upper extremity demonstrates no evidence of DVT. Duplex evaluation of the left upper extremity demonstrates no evidence of DVT. Conclusion Duplex evaluation of the right upper extremity demonstrates no evidence of DVT. Duplex evaluation of the left upper extremity demonstrates no evidence of DVT. Electronically signed by : Martinez Li MD 03/21/2020 16:19:40
--- NOTE | 2020-03-21 16:07 | PC.NURSE ---
Patient alert and oriented x4, perrla, pupils 2+, HR reg, lung sounds diminished t/o, RR 20-22, currently on heparin gtt for treatment of BL PE, abd soft and nontender, active bowel sounds in all quads, tolerating diet without difficulty, voids per urinal, urine yellow and clear, trace nonpitting edema noted to ble, Pt has areas of psoriasis on upper and lower extremities, has c/o left shoulder, neck, and back pain this shift that he takes prescribed hydrocodone for at home, treated with hydrocodone x1 this shift, pts vitals have remained stable this shift, pt reports his SOA has improved since arrival to the hospital, denies any CP, no s/s of distress noted at this time, will continue to monitor closely.
[2020-03-21 16:45] LABS: Activated Partial Thrombo Time 37.2 seconds (23.6-34.0)
--- NOTE | 2020-03-21 16:59 | PC.NURSE ---
Spoke with Moshe Tovar regarding patients recent PTT 37.2, Order given to give 5000unit bolus of heparin and increase heparin drip to 2400units/hr
--- NOTE | 2020-03-21 20:19 | PC.NURSE ---
Pt's O2 at on 2.5 lpm = 89%. Rt increased O2 to 3 lpm.
[2020-03-21 23:57] LABS: Activated Partial Thrombo Time 44.6 seconds (23.6-34.0)
[2020-03-22] VITALS (25 sets, daily range): BP systolic 126–165; BP diastolic 67–97; PULSE 70–95; RESP 16–22; TEMP 36.5–37.1; O2SAT 87–98; BMI 42.6
--- NOTE | 2020-03-22 00:06 | PC.NURSE ---
0000 Moshe from pharmacy called, order received to increase heparin drip to 2700 units/hr
--- NOTE | 2020-03-22 06:21 | PC.NURSE ---
pt has rested well t/o shift, no complaints of SOA or chest pain, O2 sats have remained above 90% on 3 L NC,
--- NOTE | 2020-03-22 06:23 | PC.NURSE ---
heparin drip continues to infuse at 2700 units/hr
[2020-03-22 07:29] LABS: Basophils # 0.1 K/mm3 (0-0.2); Basophils % 0.5 % (0.1-2.0); Eosinophils # 0.4 K/mm3 (0.0-0.4); Eosinophils % 3.1 % (0.1-12.0); Hematocrit 44.3 % (42.0-52.0); Hemoglobin 15.1 g/dL (14.1-18.0); Lymphocytes # 3.2 K/mm3 (0.7-4.5); Lymphocytes % 29.2 % (10-50); Mean Corpuscular HGB Conc 34.1 g/dL (31.8-35.4); Mean Corpuscular Hemoglobin 31.5 pg (27.0-31.2); Mean Corpuscular Volume 92.3 fl (80-94); Mean Platelet Volume 9.6 fl (7.4-10.4); Monocytes # 0.6 K/mm3 (0.1-1.0); Monocytes % 5.5 % (1.7-9.3); Neutrophils # 6.8 K/mm3 (1.8-7.8); Neutrophils % 61.7 % (37.0-80.0); Platelet Count 199 K/mm3 (142-424); Red Cell Distribution Width 13.5 % (11.5-17.5); White Blood Count 11.1 K/mm3 (4.8-10.8)
[2020-03-22 07:31] LABS: Chloride 106 mmol/L (98-107); Sodium 137 mmol/L (136-145)
[2020-03-22 07:32] LABS: Potassium 3.6 mmoL/L (3.5-5.1)
[2020-03-22 07:34] LABS: Blood Urea Nitrogen 9 mg/dl (9-20); Creatinine Clearance Estimated 115 mL/min (50-200); Estimated Glomerular Filt Rate 103 ml/min (>60); GFR (African American) 124 ML/MIN (>60)
[2020-03-22 07:35] LABS: Anion Gap 12.6 mEq/L (5-15); Calcium 9.5 mg/dl (8.4-10.2); Carbon Dioxide 22 mmol/L (22.0-30.0); Glucose 168 mg/dl (74-100)
[2020-03-22 07:40] LABS: Activated Partial Thrombo Time 44.4 seconds (23.6-34.0)
--- NOTE | 2020-03-22 08:33 | PC.NURSE ---
0823 - HEPARIN GTT INCREASED TO 58 MLS/HR PER J WATTS AT THIS TIME.
--- NOTE | 2020-03-22 09:36 | HMH.ACPN2 ---
Internal Medicine - PN: Subj *Date: 03/23/20 *Time: 09:21 Interval history: doing better - vss - will discuss with phar to use lovenox as dec heparin- ptt Exam Vital signs and Labs for Last 24 Hours: Temp Pulse Resp BP Pulse Ox 97.9 F 90 18 165/89 H 95 03/22/20 08:00 03/22/20 06:00 03/22/20 06:00 03/22/20 06:00 03/22/20 06:00 Laboratory Results - last 24 hr 03/21/20 09:10: Troponin I 0.35 H 03/21/20 09:10: Lactate 1.1 03/21/20 16:19: APTT 37.2 H D 03/21/20 23:08: APTT 44.6 H D 03/22/20 06:32: WBC 11.1 H D, RBC 4.80, Hgb 15.1, Hct 44.3, MCV 92.3, MCH 31.5 H, MCHC 34.1, RDW 13.5, Plt Count 199, MPV 9.6, Neut % (Auto) 61.7, Lymph % (Auto) 29.2, [place] % (Auto) 5.5, Eos % (Auto) 3.1, Baso % (Auto) 0.5, Neut # (Auto) 6.8, Lymph # (Auto) 3.2, [place] # (Auto) 0.6, Eos # (Auto) 0.4, Baso # (Auto) 0.1 03/22/20 06:32: Sodium 137, Potassium 3.6, Chloride 106, Carbon Dioxide 22, Anion Gap 12.6, BUN 9, Creatinine 0.80, Estimated Creat Clear 115, Estimated GFR 103, Est GFR ( Amer) 124, Glucose 168 H, Calcium 9.5 03/22/20 06:32: APTT 44.4 H I & O for Last 24 hours: Intake & Output 03/19/20 03/20/20 03/21/20 03/22/20 11:59 11:59 11:59 11:59 Intake Total 1134 / 1134 1900 / 1900 Output Total 975 / 975 3250 / 3250 Balance 159 / 159 -1350 / -1350 Weight 308 lb 10.354 oz 304 lb 6 oz - Constitutional no acute distress, obese - *Routine HEENT Exam Head: Present: normocephalic Eye: Present: EOMI, PERRL ENT: Present: mucous membranes dry - *Routine Neck Exam Absent: JVD - *Routine Respiratory Exam Present: decreased breath sounds - *Routine Cardiovascular Exam Present: RRR, murmur - *Routine Abdominal Exam Present: soft - *Routine Extremities Exam Absent: calf tenderness - *Routine Skin Exam Comments: chronic psorsis - *Routine Neurological Exam Present: alert, oriented X3, CN II-XII intact - Routine Psychiatric Exam Present: normal affect Assessment and Plan (1) Atypical chest pain Current visit: Yes Status: Acute Category: Medical Code(s): R07.89 - Other chest pain (2) Bilateral pulmonary embolism Current visit: Yes Status: Acute Category: Medical Code(s): I26.99 - Other pulmonary embolism without acute cor pulmonale (3) COPD (chronic obstructive pulmonary disease) Current visit: Yes Status: Acute Qualifiers: COPD type: unspecified COPD Qualified Code(s): J44.9 - Chronic obstructive pulmonary disease, unspecified Category: Medical Code(s): J44.9 - Chronic obstructive pulmonary disease, unspecified (4) Elevated troponin Current visit: Yes Status: Acute Category: Medical Code(s): R79.89 - Other specified abnormal findings of blood chemistry (5) Obesity Current visit: Yes Status: Acute Qualifiers: Obesity type: due to excess calories Obesity classification: adult class 3 (BMI >= 40) Serious obesity comorbidity presence: with serious comorbidity Body mass index: BMI 40.0-44.9 Qualified Code(s): E66.01 - Morbid (severe) obesity due to excess calories; Z68.41 - Body mass index (BMI) 40.0-44.9, adult Category: Medical Code(s): E66.9 - Obesity, unspecified (6) Hyperlipidemia Current visit: No Status: Acute Category: Medical Code(s): E78.5 - Hyperlipidemia, unspecified (7) Hypertensive disorder Current visit: No Status: Acute Qualifiers: Hypertension type: essential hypertension Qualified Code(s): I10 - Essential (primary) hypertension Category: Medical Code(s): I10 - Essential (primary) hypertension (8) Psoriasis Current visit: No Status: Acute Category: Medical Code(s): L40.9 - Psoriasis, unspecified (9) Tobacco user Current visit: No Status: Acute Category: Social Hx Code(s): Z72.0 - Tobacco use
[2020-03-22 15:44] LABS: Activated Partial Thrombo Time 48.2 seconds (23.6-34.0)
--- NOTE | 2020-03-22 15:48 | PC.NURSE ---
1545 - Heparin gtt increased to 3150 units/hr per [facility].
--- NOTE | 2020-03-22 16:55 | PC.NURSE ---
Pt has been up to chair most of shift. Has received prn pain meds twice for chronic neck and back pain. O2 decreased to 2 L nasal cannula w/ no s/s of resp distress. Room air sat at rest was 87% earlier this shift. Ambulates independently w/ no safety concerns. Voiding per urinal, light siena urine. Heparin infusing per pharmacy's orders. No needs at this time. Will continue to monitor.
[2020-03-22 22:32] LABS: Activated Partial Thrombo Time 53.2 seconds (23.6-34.0)
--- NOTE | 2020-03-22 23:26 | PC.NURSE ---
2233 received new order from [facility], pharmacy. Increase hepartin gtt to 3300 units/hr 2244 received new order from [facility], pharmacy. d/c heparin gtt and start pt on 140 mg of Lovenox SQ BID.
[2020-03-23] VITALS (18 sets, daily range): BP systolic 115–152; BP diastolic 73–86; PULSE 70–90; RESP 16–22; TEMP 36.5–36.8; O2SAT 91–98; BMI 42.8
[2020-03-23 07:30] LABS: Chloride 106 mmol/L (98-107); Sodium 137 mmol/L (136-145)
[2020-03-23 07:31] LABS: Potassium 3.4 mmoL/L (3.5-5.1)
[2020-03-23 07:32] LABS: Basophils # 0.1 K/mm3 (0-0.2); Basophils % 0.6 % (0.1-2.0); Eosinophils # 0.4 K/mm3 (0.0-0.4); Hematocrit 43.1 % (42.0-52.0); Hemoglobin 14.5 g/dL (14.1-18.0); Lymphocytes # 3.2 K/mm3 (0.7-4.5); Lymphocytes % 36.9 % (10-50); Mean Corpuscular HGB Conc 33.7 g/dL (31.8-35.4); Mean Corpuscular Hemoglobin 31.8 pg (27.0-31.2); Mean Corpuscular Volume 94.3 fl (80-94); Mean Platelet Volume 8.9 fl (7.4-10.4); Monocytes # 0.5 K/mm3 (0.1-1.0); Monocytes % 5.2 % (1.7-9.3); Neutrophils # 4.7 K/mm3 (1.8-7.8); Neutrophils % 53.3 % (37.0-80.0); Platelet Count 191 K/mm3 (142-424); Red Blood Count 4.57 M/mm3 (4.60-6.20); Red Cell Distribution Width 13.5 % (11.5-17.5); White Blood Count 8.7 K/mm3 (4.8-10.8)
[2020-03-23 07:33] LABS: Blood Urea Nitrogen 7 mg/dl (9-20); Creatinine Clearance Estimated 115 mL/min (50-200); Estimated Glomerular Filt Rate 103 ml/min (>60); GFR (African American) 124 ML/MIN (>60)
[2020-03-23 07:34] LABS: Anion Gap 10.4 mEq/L (5-15); Calcium 9.4 mg/dl (8.4-10.2); Carbon Dioxide 24 mmol/L (22.0-30.0); Glucose 176 mg/dl (74-100)
--- NOTE | 2020-03-23 10:18 | HMH.ACPN2 ---
Internal Medicine - PN: Subj *Date: 03/24/20 *Time: 14:16 Interval history: doing better - he has o2 at 2l/min- will use lovenox at this time Exam Vital signs and Labs for Last 24 Hours: Temp Pulse Resp BP Pulse Ox 97.8 F 85 22 140/81 94 L 03/23/20 07:55 03/23/20 07:55 03/23/20 07:55 03/23/20 07:55 03/23/20 07:58 Laboratory Results - last 24 hr 03/22/20 15:15: APTT 48.2 H 03/22/20 22:05: APTT 53.2 H* D 03/23/20 06:53: WBC 8.7, RBC 4.57 L, Hgb 14.5, Hct 43.1, MCV 94.3 H, MCH 31.8 H, MCHC 33.7, RDW 13.5, Plt Count 191, MPV 8.9, Neut % (Auto) 53.3, Lymph % (Auto) 36.9, [place] % (Auto) 5.2, Eos % (Auto) 4.0, Baso % (Auto) 0.6, Neut # (Auto) 4.7, Lymph # (Auto) 3.2, [place] # (Auto) 0.5, Eos # (Auto) 0.4, Baso # (Auto) 0.1 03/23/20 06:53: Sodium 137, Potassium 3.4 L, Chloride 106, Carbon Dioxide 24, Anion Gap 10.4, BUN 7 L, Creatinine 0.80, Estimated Creat Clear 115, Estimated GFR 103, Est GFR ( Amer) 124, Glucose 176 H, Calcium 9.4 I & O for Last 24 hours: Intake & Output 03/20/20 03/21/20 03/22/20 03/23/20 11:59 11:59 11:59 11:59 Intake Total 1134 / 1134 1900 / 1900 2496 / 2496 Output Total 975 / 975 3450 / 3450 1999 Balance 159 / 159 -1550 / -1550 496 / 496 Weight 308 lb 10.354 oz 304 lb 6 oz 306 lb 3 oz Microbiology Reports for the Last 24 Hours: Microbiology 03/20/20 19:10 Blood Blood Culture - Preliminary NO GROWTH AFTER 48 HOURS 03/20/20 19:10 Blood Blood Culture - Preliminary NO GROWTH AFTER 48 HOURS - Constitutional no acute distress - *Routine HEENT Exam Head: Present: normocephalic Eye: Present: EOMI, PERRL ENT: Present: mucous membranes dry - *Routine Neck Exam Present: supple - *Routine Respiratory Exam Present: decreased breath sounds - *Routine Cardiovascular Exam Present: RRR, murmur, S4 - *Routine Abdominal Exam Present: soft - *Routine Extremities Exam Absent: calf tenderness - *Routine Skin Exam Present: intact - *Routine Neurological Exam Present: alert, CN II-XII intact - Routine Psychiatric Exam Present: normal affect Assessment and Plan (1) Atypical chest pain Current visit: Yes Status: Acute Category: Medical Code(s): R07.89 - Other chest pain (2) Bilateral pulmonary embolism Current visit: Yes Status: Acute Category: Medical Code(s): I26.99 - Other pulmonary embolism without acute cor pulmonale (3) COPD (chronic obstructive pulmonary disease) Current visit: Yes Status: Chronic Qualifiers: COPD type: unspecified COPD Qualified Code(s): J44.9 - Chronic obstructive pulmonary disease, unspecified Category: Medical Code(s): J44.9 - Chronic obstructive pulmonary disease, unspecified (4) Elevated troponin Current visit: Yes Status: Resolved Category: Medical Code(s): R79.89 - Other specified abnormal findings of blood chemistry (5) Obesity Current visit: Yes Status: Chronic Qualifiers: Obesity type: due to excess calories Obesity classification: adult class 3 (BMI >= 40) Serious obesity comorbidity presence: with serious comorbidity Body mass index: BMI 40.0-44.9 Qualified Code(s): E66.01 - Morbid (severe) obesity due to excess calories; Z68.41 - Body mass index (BMI) 40.0-44.9, adult Category: Medical Code(s): E66.9 - Obesity, unspecified (6) Hyperlipidemia Current visit: No Status: Chronic Category: Medical Code(s): E78.5 - Hyperlipidemia, unspecified (7) Hypertensive disorder Current visit: No Status: Chronic Qualifiers: Hypertension type: essential hypertension Qualified Code(s): I10 - Essential (primary) hypertension Category: Medical Code(s): I10 - Essential (primary) hypertension (8) Psoriasis Current visit: No Status: Chronic Category: Medical Code(s): L40.9 - Psoriasis, unspecified (9) Tobacco user Current visit: No Status: Chronic Category: S
--- NOTE | 2020-03-23 16:17 | PC.NURSE ---
PT IS SITTING UP IN THE CHAIR AT THIS TIME. ALERT AND ORIENTED X4. PT HAS BEEN AMBULATING TO THE BATHROOM OFF AND ON THIS SHIFT. O2 SATURATION HAS MAINTAINED IN THE MID 90'S ON 2 L NC. PT STATES HE ONLY GET SOA WHEN GETTING UP TO AMBULATE. PT WAS MEDICATED FOR NECK AND SHOULDER PAIN PRN. NICOTINE PATCH NOTED TO LUE. LUNG SOUNDS DIMINISHED. BOWEL SOUNDS NORMAL. PT STATED HIS LAST BOWEL MOVEMENT WAS AT 0300 THIS MORNING. EATING AND DRINKING WELL. PSORIASIS NOTED TO BUE/BLE/ABDOMEN. PT STATES HIS PSORIASIS HAS BEEN A CHRONIC ISSUE FOR SOMETIME NOW. VSS. WILL CONTINUE TO MONITOR.
--- NOTE | 2020-03-23 18:53 | PC.NURSE ---
PT WEIGHT 303.2 LBS. BED SCALE #[id number]
[2020-03-24] VITALS (7 sets, daily range): BP systolic 131–144; BP diastolic 82–93; PULSE 7–90; RESP 20–22; TEMP 36.7–36.8; O2SAT 87–96; BMI 42.3
--- NOTE | 2020-03-24 06:01 | PC.NURSE ---
Pt has rested well this shift. Daughter brought pt clothes at the beginning of shift and was able to take a shower independently. Pt did change rooms this shift and when going to his new room he requested to ambulate down the montiel. Pt's gait was steady and satisfactory and pt experienced no episodes of SOA during this time. Pt has had 3 L NC during sleeping hours and has tolerated well. No other complaints or changes at this time. Will continue to monitor.
--- NOTE | 2020-03-24 08:49 | HMH.PNCARD ---
Subjective Date: 03/24/20 Time: 08:49 Principal diagnosis: bilateral PE and DVT's Interval history: 49-year-old white male sitting in bedside chair in no acute distress. States his exertional shortness of breath is improving. He denies any chest pain, pressure or tightness. Patient has been maintained on anticoagulation over the weekend (IV heparin switched to SQ lovenox). Switch to PO Xarelto upon discharge. Lower extremity venous Dopplers last week showed bilateral DVTs. Exam Vital signs and Labs for Last 24 Hours: Temp Pulse Resp BP Pulse Ox 98.0 F 87 20 131/93 H 95 03/24/20 08:00 03/24/20 08:00 03/24/20 08:00 03/24/20 08:00 03/24/20 08:00 I & O for Last 24 hours: Intake & Output 03/21/20 03/22/20 03/23/20 03/24/20 11:59 11:59 11:59 11:59 Intake Total 1134 / 1134 1900 / 1900 2496 / 2496 1640 / 1640 Output Total 975 / 975 3450 / 3450 1999 / 1999 Balance 159 / 159 -1550 / -1550 496 / 496 1640 / 1640 Weight 308 lb 10.354 oz 304 lb 6 oz 306 lb 3 oz 302 lb 8 oz - *Routine HEENT Exam Head: Present: normocephalic Eye: Present: EOMI, PERRL ENT: Present: mucous membranes moist - *Routine Respiratory Exam Present: CTA bilaterally - *Routine Cardiovascular Exam Present: RRR - *Routine Extremities Exam Absent: cyanosis, clubbing, edema Comments: Large plaques of psoriasis are noted on the extremities bilaterally. - *Routine Neurological Exam Present: alert, oriented X3 Progress Note: A&P (1) Bilateral pulmonary embolism Status: Acute Current Visit: Yes (2) DVT, bilateral lower limbs Status: Acute Current Visit: Yes (3) Atypical chest pain Status: Acute Current Visit: Yes (4) COPD (chronic obstructive pulmonary disease) Status: Acute Current Visit: Yes (5) Elevated troponin Status: Acute Current Visit: Yes (6) Obesity Status: Acute Current Visit: Yes (7) Hyperlipidemia Status: Acute Current Visit: No (8) Hypertensive disorder Status: Acute Current Visit: No (9) Psoriasis Status: Acute Current Visit: No (10) Tobacco user Status: Acute Current Visit: No Assessment and Plan for All Diagnoses:: Discussed with Dr. Tyson regarding possible need for IVC filter. He will review the venous Dopplers with Dr. Li with further recommendations to follow.
--- NOTE | 2020-03-24 10:46 | HMH.PULMPN ---
Internal Medicine - PN: Subj *Date: 03/24/20 *Time: 10:46 Interval history: Patient denies any new complaints today, says his breathing is significantly better compared to Tuesday. Still using 3 L of oxygen Exam Vital signs and Labs for Last 24 Hours: Temp Pulse Resp BP Pulse Ox 98.0 F 87 20 131/93 H 95 03/24/20 08:00 03/24/20 08:00 03/24/20 08:00 03/24/20 08:00 03/24/20 08:00 I & O for Last 24 hours: Intake & Output 03/21/20 03/22/20 03/23/20 03/24/20 23:59 23:59 23:59 23:59 Intake Total 1703 / 1703 3347 / 3347 1280 / 1760 840 / 840 Output Total 3125 / 3575 2950 / 2950 350 / 350 Balance -1422 / -1872 397 / 397 930 / 1410 840 / 840 Weight 308 lb 10.354 oz 304 lb 6 oz 306 lb 3 oz 302 lb 8 oz - *Routine HEENT Exam Head: Present: normocephalic, atraumatic - *Routine Neck Exam Present: supple, full ROM, JVD. Absent: lymphadenopathy - *Routine Respiratory Exam Present: CTA bilaterally. Absent: accessory muscle use - *Routine Cardiovascular Exam Present: RRR, Normal S1, Normal S2 - *Routine Abdominal Exam Present: soft, normoactive bowel sounds. Absent: tenderness, distended, rebound, guarding - *Routine Extremities Exam Absent: cyanosis, clubbing, edema Comments: Psoriatic silver scaly rash noted on both lower extremities - *Routine Skin Exam Present: intact, lesions. Absent: cyanosis, erythema - *Routine Neurological Exam Present: alert, oriented X3 - Routine Psychiatric Exam Present: normal affect, normal thought process. Absent: suicidal ideation, homicidal ideation Assessment and Plan (1) Bilateral pulmonary embolism Current visit: Yes Status: Acute Category: Medical Code(s): I26.99 - Other pulmonary embolism without acute cor pulmonale (2) DVT, bilateral lower limbs Current visit: Yes Status: Acute Category: Medical Code(s): I82.403 - Acute embolism and thrombosis of unspecified deep veins of lower extremity, bilateral (3) Atypical chest pain Current visit: Yes Status: Acute Category: Medical Code(s): R07.89 - Other chest pain (4) COPD (chronic obstructive pulmonary disease) Current visit: Yes Status: Acute Qualifiers: COPD type: unspecified COPD Qualified Code(s): J44.9 - Chronic obstructive pulmonary disease, unspecified Category: Medical Code(s): J44.9 - Chronic obstructive pulmonary disease, unspecified (5) Elevated troponin Current visit: Yes Status: Acute Category: Medical Code(s): R79.89 - Other specified abnormal findings of blood chemistry (6) Obesity Current visit: Yes Status: Acute Qualifiers: Obesity type: due to excess calories Obesity classification: adult class 3 (BMI >= 40) Serious obesity comorbidity presence: with serious comorbidity Body mass index: BMI 40.0-44.9 Qualified Code(s): E66.01 - Morbid (severe) obesity due to excess calories; Z68.41 - Body mass index (BMI) 40.0-44.9, adult Category: Medical Code(s): E66.9 - Obesity, unspecified (7) Hyperlipidemia Current visit: No Status: Acute Category: Medical Code(s): E78.5 - Hyperlipidemia, unspecified (8) Hypertensive disorder Current visit: No Status: Acute Qualifiers: Hypertension type: essential hypertension Qualified Code(s): I10 - Essential (primary) hypertension Category: Medical Code(s): I10 - Essential (primary) hypertension (9) Psoriasis Current visit: No Status: Acute Category: Medical Code(s): L40.9 - Psoriasis, unspecified (10) Tobacco user Current visit: No Status: Acute Category: Social Hx Code(s): Z72.0 - Tobacco use - Assessment and plan all Dx Assessment and Plan for all problems:: #Acute hypoxic respiratory failure: # Submassive PE: #Tobacco abuse disorder: #History of COPD: 49-year-old male with uestionable history of DVT 6 years ago, significant family history of clots with his father diagnosed in his late 40s, history of smoking, more than 30-pa
--- NOTE | 2020-03-24 11:16 | SW/DCPLANNER ---
Addendum entered by Vandana Rendon 03/24/20 13:07: Caro Vitale has stated that portable O2 will be delivered to this patient today prior to discharge. Original Note: This patient will discharge home today and will require home O2 at discharge. I have faxed patient information and order for home o2 and portable to be delivered to [facility]. I will follow up with Iam once patient information is reviewed. Patient will discharge home later today.
--- NOTE | 2020-03-24 12:17 | HMH.DCSUM ---
General - General Admission date:: 03/20/20 Discharge date: 03/24/20 HPI HPI: 49-year-old male presented to the ED complaining of acutely worsening shortness of breath. Patient states that 2 days ago he noted this acute onset shortness of breath, not associated with any fevers any chills. with history of smoking, more than [id number] smoking history, psoriasis, questionable history of DVT 6 years ago, hypertension, and hyper glycemia. Pt admitted for PE and ameya dvt, cardiology and pulm consult. Hospital Course Hospital Course: Pt was admitted through the ER. Initial workup included CTA chest 1. Extensive bilateral pulmonary emboli with findings suggestive of right heart strain. 2. Centrilobular and paraseptal emphysema. 3. Diffuse ground-glass attenuation of the upper lobes with scattered areas of more focal consolidation most prominent in the left upper lobe posteriorly. This could be due to areas of infarction or pneumonia. 4. Other nonacute findings as described above. He was seen in consultation with cardiology and pulmonary. He was anticoagulated and followed closely, using heparin then lovenox. Supplemental 02 was given. He made consistent clinical improvements and will be discharged today with plans to follow up closely. He is agreeable with our plans and understands them clearly. Objective Vital signs: Temp Pulse Resp BP Pulse Ox 98.0 F 87 20 131/93 H 87 L 03/24/20 08:00 03/24/20 08:00 03/24/20 08:00 03/24/20 08:00 03/24/20 11:02 no acute distress, obese, cooperative - *Routine HEENT Exam Head: Present: normocephalic, atraumatic Eye: Absent: conjunctival icterus ENT: Present: mucous membranes moist - *Routine Neck Exam Present: supple. Absent: JVD - *Routine Respiratory Exam Present: CTA bilaterally. Absent: accessory muscle use - *Routine Cardiovascular Exam Present: RRR, Normal S1, Normal S2. Absent: murmur, tachycardia - *Routine Abdominal Exam Present: soft. Absent: tenderness - *Routine Extremities Exam Absent: cyanosis, clubbing, edema, tenderness - *Routine Skin Exam Present: intact. Absent: cyanosis, jaundice Comments: psoriasis lesions ant knees - *Routine Neurological Exam Present: alert, oriented X3, vision grossly intact, hearing grossly intact, normal speech Results Labs on day of discharge: Preliminary micro results at discharge 03/20/20 19:10 Blood Culture - Preliminary Blood NO GROWTH AFTER 48 HOURS 03/20/20 19:10 Blood Culture - Preliminary Blood NO GROWTH AFTER 48 HOURS DS: Diagnosis - Discharge Diagnosis (1) Bilateral pulmonary embolism Status: Acute (2) DVT, bilateral lower limbs Status: Acute (3) Atypical chest pain Status: Acute (4) COPD (chronic obstructive pulmonary disease) Status: Chronic (5) Elevated troponin Status: Resolved (6) Obesity Status: Chronic (7) Hyperlipidemia Status: Chronic (8) Hypertensive disorder Status: Chronic (9) Psoriasis Status: Chronic (10) Tobacco user Status: Chronic Discharge Plan - Patient Discharge Instructions ACTIVITY: Limited activity DIET: low salt diet Patient Instructions: Pulmonary Embolism, Deep Vein Thrombosis, DI for Deep Vein Thrombosis, DI for Pulmonary Embolism, DI for Chest Pain - Follow up Plan Follow up with: Sydnee Blanc MD [Staff Physician] - 06/11/20 10:00 am Syed Riley MD [Primary Care Provider] - 03/31/20 11:15 am (please bring medication list to all appointments ) Mauricio Heath MD [Physician] - 04/21/20 10:45 am Disposition: Home, Self-Usp Medications: Home Medications Medication Instructions Recorded Confirmed Type Aspirin [Low Dose Aspirin EC] 81 mg PO DAILY 03/22/18 03/21/20 History gabapentin 800 mg tablet 800 mg PO TID #90 tab 12/03/19 03/21/20 Rx Trazodone HCl 50 mg PO DAILY 01/24/20 03/21/20 History hydroCHLOROthiazide 12.5 mg PO DAILY
--- NOTE | 2020-03-24 13:11 | PC.NURSE ---
Room Air Spo2 94%, Returned to 3 LPM NC
--- NOTE | 2020-03-24 13:56 | HMH.PHAINT ---
DISCHARGE COUNSELING-DISCUSSED NEW MEDS WITH THE PATIENT. REITERATED THE NECESSITY OF TAKING XARELTO WITH FOOD ESPECIALLY ONCE HE SWITCHES TO ONCE DAILY DOSING.
--- NOTE | 2020-03-24 14:11 | PC.NURSE ---
Called and spoke with Dr. Dougherty office and spoke with Deisy in RE to pt requesting gabapentin refill. They are going to call in for pt and also Dr. Riley stated pt could take norco prn as ordered prior to coming to hospital.
== END 2020-03-24 15:15 | disposition home or self-care (01) | DRG 175 ==
LOC: ER 21:44 → 2ND 22:01
PROVIDERS: Internal Medicine Pulmonary Disease; Nurse Practitioner Family; Admitting Provider Emergency Medicine; Emergency Provider Emergency Medicine; PCP Emergency Medicine; Visit Provider Emergency Medicine
DX: I26.99 Other pulmonary embolism without acute cor pulmonale (principal); J96.01 Acute respiratory failure with hypoxia; I82.431 Acute embolism and thrombosis of right popliteal vein; I82.443 Acute embolism and thrombosis of tibial vein, bilateral; Z68.41 Body mass index [BMI] 40.0-44.9, adult; E66.01 Morbid (severe) obesity due to excess calories; Z72.0 Tobacco use; J44.9 Chronic obstructive pulmonary disease, unspecified; Z79.899 Other long term (current) drug therapy
CPT/HCPCS: 36415; 71045; 71275; 80048; 80053; 83605; 83690; 83735; 83880; 84443; 84484; 85007; 85025; 85610; 85730; 86328; 87040; 93005; 93306; 93970; 94640; 94761; 96365; 96367; 96375; 99285; Q9967

== ENCOUNTER → 2020-08-22 17:40 | Outpatient (CLI) | payer MEDICARE, MEDICAID, SELFPAY ==
[2020-08-22 18:11] LABS: Amphetamine/Metha Screen,Urine Negative ng/ml (<1000)
[2020-08-22 18:12] LABS: Barbiturates Screen,Urine Negative ng/ml (<200); Benzodiazepines Screen,Urine Negative ng/ml (<200)
[2020-08-22 18:13] LABS: Cannabinoid Screen,Urine Negative ng/ml (<50)
[2020-08-22 18:15] LABS: Cocaine Screen,Urine Negative ng/ml (<300)
[2020-08-22 18:16] LABS: Methadone Screen,Urine Negative ng/ml (<300)
[2020-08-22 18:17] LABS: Opiate Screen,Urine Positive ng/ml (<300)
[2020-08-22 18:18] LABS: Phencyclidine Screen,Urine Negative ng/ml (<25)
== END ==
PROVIDERS: Visit Provider Emergency Medicine
DX: T50.902A Poisoning by unspecified drugs, medicaments and biological substances, intentional self-harm, initial encounter (principal)
CPT/HCPCS: 80305

== ENCOUNTER → 2020-10-17 14:10 | Outpatient (CLI) | payer MEDICARE, MEDICAID, SELFPAY ==
[2020-10-17 16:55] LABS: Barbiturates Screen,Urine Negative ng/ml (<200)
[2020-10-17 16:56] LABS: Benzodiazepines Screen,Urine Negative ng/ml (<200)
[2020-10-17 16:57] LABS: Amphetamine/Metha Screen,Urine Negative ng/ml (<1000); Methadone Screen,Urine Negative ng/ml (<300)
[2020-10-17 16:58] LABS: Cannabinoid Screen,Urine Negative ng/ml (<50); Cocaine Screen,Urine Negative ng/ml (<300)
[2020-10-17 17:00] LABS: Opiate Screen,Urine Positive ng/ml (<300); Phencyclidine Screen,Urine Negative ng/ml (<25)
== END ==
PROVIDERS: Visit Provider Emergency Medicine
DX: Z79.899 Other long term (current) drug therapy (principal)
CPT/HCPCS: 80305

== ENCOUNTER → 2020-12-12 14:29 | Outpatient (CLI) | payer MEDICARE, MEDICAID, SELFPAY ==
[2020-12-12 15:59] LABS: Basophils # 0.1 K/mm3 (0-0.2); Basophils % 0.9 % (0.1-2.0); Eosinophils # 0.2 K/mm3 (0.0-0.4); Eosinophils % 2.8 % (0.1-12.0); Hemoglobin 16.4 g/dL (14.1-18.0); Lymphocytes # 2.7 K/mm3 (0.7-4.5); Mean Corpuscular HGB Conc 32.2 g/dL (31.8-35.4); Mean Corpuscular Hemoglobin 31.1 pg (27.0-31.2); Mean Corpuscular Volume 96.7 fl (80-94); Mean Platelet Volume 10.2 fl (7.4-10.4); Monocytes # 0.4 K/mm3 (0.1-1.0); Monocytes % 4.6 % (1.7-9.3); Neutrophils # 4.4 K/mm3 (1.8-7.8); Neutrophils % 56.7 % (37.0-80.0); Platelet Count 188 K/mm3 (142-424); Red Blood Count 5.27 M/mm3 (4.60-6.20); Red Cell Distribution Width 13.8 % (11.5-17.5); White Blood Count 7.7 K/mm3 (4.8-10.8)
[2020-12-12 16:07] LABS: Alanine Aminotransferase 28 U/L (12-78); Albumin Level 4.1 g/dl (3.5-5.0); Alkaline Phosphatase 112 U/L (38-126); Anion Gap 11.6 mEq/L (5-15); Aspartate Amino Transferase 36 U/L (17-59); Bilirubin,Total 0.7 mg/dl (0.2-1.3); Blood Urea Nitrogen 7 mg/dl (9-20); Calcium 9.9 mg/dl (8.4-10.2); Carbon Dioxide 29 mmol/L (22.0-30.0); Chloride 101 mmol/L (98-107); Chol/HDL Ratio 5.9 (1-3.5); Cholesterol 189 mg/dl (140-200); Estimated Glomerular Filt Rate 119 ml/min (>60); GFR (African American) 144 ML/MIN (>60); Glucose 270 mg/dl (74-100); HDL Cholesterol 32 mg/dl (40-60); Potassium 4.6 mmoL/L (3.5-5.1); Sodium 137 mmol/L (136-145); Total Protein,Serum 8.1 g/dl (6.3-8.2); Triglycerides 242 mg/dl (30-150); VLDL Cholesterol 48 mg/dL (0-40)
[2020-12-12 16:18] LABS: Amphetamine/Metha Screen,Urine Negative ng/ml (<1000); Direct LDL Cholesterol 93.59 mg/dL (100-129)
[2020-12-12 16:19] LABS: Barbiturates Screen,Urine Negative ng/ml (<200); Benzodiazepines Screen,Urine Negative ng/ml (<200)
[2020-12-12 16:20] LABS: Cannabinoid Screen,Urine Negative ng/ml (<50)
[2020-12-12 16:21] LABS: Cocaine Screen,Urine Negative ng/ml (<300); Methadone Screen,Urine Negative ng/ml (<300)
[2020-12-12 16:22] LABS: Phencyclidine Screen,Urine Negative ng/ml (<25)
[2020-12-12 16:23] LABS: Opiate Screen,Urine Positive ng/ml (<300)
[2020-12-12 16:25] LABS: Free T4 (Free Thyroxine) 1.36 ng/dl (0.78-2.19)
[2020-12-12 16:36] LABS: 25-OH Vitamin D, Total < 12.8 ng/mL (30-100)
[2020-12-12 16:39] LABS: Prostate Specific Ag Screen 0.2 ng/ml (0.0-4.0); Thyroid Stimulating Hormone 1.91 uIU/mL (0.465-4.68)
== END ==
PROVIDERS: Visit Provider Emergency Medicine
DX: Z79.899 Other long term (current) drug therapy (principal); E55.9 Vitamin D deficiency, unspecified; E78.5 Hyperlipidemia, unspecified; M47.816 Spondylosis without myelopathy or radiculopathy, lumbar region; R53.83 Other fatigue; Z79.01 Long term (current) use of anticoagulants; Z12.5 Encounter for screening for malignant neoplasm of prostate; Z51.81 Encounter for therapeutic drug level monitoring
CPT/HCPCS: 80053; 80061; 80305; 82306; 84439; 84443; 85025; G0103

== ENCOUNTER → 2020-12-18 13:43 | Outpatient (CLI) | payer MEDICARE, MEDICAID, SELFPAY ==
[2020-12-18 14:21] LABS: Hemoglobin A1C 8.6 % (4.0-6.0)
== END ==
PROVIDERS: Visit Provider Physician Assistant
DX: E11.9 Type 2 diabetes mellitus without complications (principal); R79.89 Other specified abnormal findings of blood chemistry; Z79.84 Long term (current) use of oral hypoglycemic drugs
CPT/HCPCS: 83036

== ENCOUNTER → 2021-01-02 14:54 | Outpatient (CLI) | payer MEDICARE, MEDICAID, SELFPAY ==
[2021-01-02 16:21] VITALS: BMI 41.8
== END ==
PROVIDERS: PCP Emergency Medicine; Visit Provider Physician Assistant
DX: Z71.3 Dietary counseling and surveillance (principal)
CPT/HCPCS: 97802

== ENCOUNTER → 2021-02-09 14:07 | Outpatient (CLI) | payer MEDICARE, MEDICAID, SELFPAY ==
[2021-02-09 14:31] LABS: Amphetamine/Metha Screen,Urine Negative ng/ml (<1000)
[2021-02-09 14:32] LABS: Barbiturates Screen,Urine Negative ng/ml (<200)
[2021-02-09 14:33] LABS: Benzodiazepines Screen,Urine Negative ng/ml (<200); Cannabinoid Screen,Urine Negative ng/ml (<50)
[2021-02-09 14:34] LABS: Cocaine Screen,Urine Negative ng/ml (<300); Methadone Screen,Urine Negative ng/ml (<300)
[2021-02-09 14:35] LABS: Opiate Screen,Urine Positive ng/ml (<300)
[2021-02-09 14:36] LABS: Phencyclidine Screen,Urine Negative ng/ml (<25)
== END ==
PROVIDERS: Visit Provider Emergency Medicine
DX: M19.90 Unspecified osteoarthritis, unspecified site (principal); Z79.899 Other long term (current) drug therapy
CPT/HCPCS: 80305

== ENCOUNTER → 2021-03-17 13:52 | Outpatient (CLI) | payer MEDICARE, MEDICAID, SELFPAY ==
[2021-03-17 14:46] LABS: Microalbumin/Creatinine Ratio 7.1
[2021-03-17 14:52] LABS: Creatinine,Urine Random 122 mg/dL (Not Estab.)
== END ==
PROVIDERS: Visit Provider Emergency Medicine
DX: E11.9 Type 2 diabetes mellitus without complications (principal); Z79.84 Long term (current) use of oral hypoglycemic drugs
CPT/HCPCS: 82043; 82570

== ENCOUNTER → 2021-04-07 14:24 | Outpatient (CLI) | payer MEDICARE, MEDICAID, SELFPAY ==
[2021-04-07 16:33] LABS: Amphetamine/Metha Screen,Urine Negative ng/ml (<1000)
[2021-04-07 16:36] LABS: Barbiturates Screen,Urine Negative ng/ml (<200); Benzodiazepines Screen,Urine Negative ng/ml (<200)
[2021-04-07 16:37] LABS: Cannabinoid Screen,Urine Negative ng/ml (<50)
[2021-04-07 16:38] LABS: Cocaine Screen,Urine Negative ng/ml (<300); Methadone Screen,Urine Negative ng/ml (<300)
[2021-04-07 16:39] LABS: Opiate Screen,Urine Positive ng/ml (<300)
[2021-04-07 16:40] LABS: Phencyclidine Screen,Urine Negative ng/ml (<25)
== END ==
PROVIDERS: Visit Provider Emergency Medicine
DX: Z79.899 Other long term (current) drug therapy (principal)
CPT/HCPCS: 80305

== ENCOUNTER → 2021-06-05 14:28 | Outpatient (CLI) | payer MEDICARE, MEDICAID, SELFPAY ==
[2021-06-05 16:21] LABS: Amphetamine/Metha Screen,Urine Negative ng/ml (<1000); Barbiturates Screen,Urine Negative ng/ml (<200)
[2021-06-05 16:23] LABS: Benzodiazepines Screen,Urine Negative ng/ml (<200)
[2021-06-05 16:24] LABS: Cannabinoid Screen,Urine Negative ng/ml (<50); Cocaine Screen,Urine Negative ng/ml (<300)
[2021-06-05 16:25] LABS: Methadone Screen,Urine Negative ng/ml (<300)
[2021-06-05 16:26] LABS: Opiate Screen,Urine Positive ng/ml (<300); Phencyclidine Screen,Urine Negative ng/ml (<25)
== END ==
PROVIDERS: Visit Provider Emergency Medicine
DX: Z79.899 Other long term (current) drug therapy (principal)
CPT/HCPCS: 80305

== ENCOUNTER → 2021-10-14 15:43 | Outpatient (CLI) | payer MEDICARE, MEDICAID, SELFPAY ==
[2021-10-14 16:26] LABS: Amphetamine/Metha Screen,Urine Negative ng/ml (<1000)
[2021-10-14 16:27] LABS: Barbiturates Screen,Urine Negative ng/ml (<200); Benzodiazepines Screen,Urine Negative ng/ml (<200)
[2021-10-14 16:29] LABS: Cocaine Screen,Urine Negative ng/ml (<300); Methadone Screen,Urine Negative ng/ml (<300)
[2021-10-14 16:30] LABS: Opiate Screen,Urine Positive ng/ml (<300); Phencyclidine Screen,Urine Negative ng/ml (<25)
[2021-10-14 16:34] LABS: Cannabinoid Screen,Urine Negative ng/ml (<50)
== END ==
PROVIDERS: Visit Provider Emergency Medicine
DX: Z79.899 Other long term (current) drug therapy (principal)
CPT/HCPCS: 80305

== ENCOUNTER → 2021-12-09 16:00 | Outpatient (CLI) | payer MEDICARE, MEDICAID, SELFPAY ==
[2021-12-09 13:46] LABS: Amphetamine/Metha Screen,Urine Negative ng/ml (<1000)
[2021-12-09 13:47] LABS: Barbiturates Screen,Urine Negative ng/ml (<200)
[2021-12-09 13:48] LABS: Benzodiazepines Screen,Urine Negative ng/ml (<200)
[2021-12-09 13:49] LABS: Cannabinoid Screen,Urine Negative ng/ml (<50)
[2021-12-09 13:50] LABS: Cocaine Screen,Urine Negative ng/ml (<300); Methadone Screen,Urine Negative ng/ml (<300)
[2021-12-09 13:51] LABS: Opiate Screen,Urine Positive ng/ml (<300)
[2021-12-09 13:52] LABS: Phencyclidine Screen,Urine Negative ng/ml (<25)
== END ==
PROVIDERS: Visit Provider Emergency Medicine
DX: Z79.899 Other long term (current) drug therapy (principal)
CPT/HCPCS: 80305

== ENCOUNTER → 2022-02-05 14:05 | Outpatient (CLI) | payer MEDICARE, MEDICAID, SELFPAY ==
[2022-02-05 13:31] LABS: Barbiturates Screen,Urine Negative ng/ml (<200); Benzodiazepines Screen,Urine Negative ng/ml (<200)
[2022-02-05 13:32] LABS: Amphetamine/Metha Screen,Urine Negative ng/ml (<1000)
[2022-02-05 13:35] LABS: Cannabinoid Screen,Urine Negative ng/ml (<50)
[2022-02-05 13:36] LABS: Cocaine Screen,Urine Negative ng/ml (<300); Methadone Screen,Urine Negative ng/ml (<300)
[2022-02-05 13:40] LABS: Opiate Screen,Urine Positive ng/ml (<300); Phencyclidine Screen,Urine Negative ng/ml (<25)
== END ==
PROVIDERS: PCP Emergency Medicine; Visit Provider Emergency Medicine
DX: Z79.899 Other long term (current) drug therapy (principal)
CPT/HCPCS: 80305

== ENCOUNTER → 2022-04-06 08:25 | Outpatient (CLI) | payer MEDICARE, MEDICAID, SELFPAY ==
[2022-04-06 14:36] LABS: Amphetamine/Metha Screen,Urine Negative ng/ml (<1000); Barbiturates Screen,Urine Negative ng/ml (<200)
[2022-04-06 14:37] LABS: Benzodiazepines Screen,Urine Negative ng/ml (<200)
[2022-04-06 14:39] LABS: Cannabinoid Screen,Urine Negative ng/ml (<50)
[2022-04-06 14:40] LABS: Cocaine Screen,Urine Negative ng/ml (<300)
[2022-04-06 14:41] LABS: Methadone Screen,Urine Negative ng/ml (<300); Opiate Screen,Urine Positive ng/ml (<300)
[2022-04-06 14:42] LABS: Phencyclidine Screen,Urine Negative ng/ml (<25)
== END ==
PROVIDERS: PCP Emergency Medicine; Visit Provider Emergency Medicine
DX: T50.902A Poisoning by unspecified drugs, medicaments and biological substances, intentional self-harm, initial encounter (principal); Z79.899 Other long term (current) drug therapy
CPT/HCPCS: 80305

== ENCOUNTER → 2022-06-30 15:06 | Outpatient (CLI) | payer MEDICARE, MEDICAID, SELFPAY ==
[2022-06-30 16:48] LABS: Basophils # 0.1 K/mm3 (0-0.2); Basophils % 1.2 % (0.1-2.0); Eosinophils # 0.3 K/mm3 (0.0-0.4); Eosinophils % 3.2 % (0.1-12.0); Hematocrit 52.4 % (42.0-52.0); Hemoglobin 16.5 g/dL (14.1-18.0); Lymphocytes # 3.3 K/mm3 (0.7-4.5); Lymphocytes % 31.4 % (10-50); Mean Corpuscular HGB Conc 31.5 g/dL (31.8-35.4); Mean Corpuscular Hemoglobin 32.1 pg (27.0-31.2); Mean Corpuscular Volume 101.8 fl (80-94); Monocytes # 0.6 K/mm3 (0.1-1.0); Monocytes % 5.7 % (1.7-9.3); Neutrophils # 6.1 K/mm3 (1.8-7.8); Neutrophils % 58.6 % (37.0-80.0); Platelet Count 208 K/mm3 (142-424); Red Blood Count 5.15 M/mm3 (4.60-6.20); Red Cell Distribution Width 13.9 % (11.5-17.5); White Blood Count 10.4 K/mm3 (4.8-10.8)
[2022-06-30 17:31] LABS: Alanine Aminotransferase 25 U/L (12-78); Albumin Level 4.4 g/dl (3.5-5.0); Albumin/Globulin Ratio 1.1 (1.1-1.8); Alkaline Phosphatase 85 U/L (38-126); Anion Gap 12.3 mEq/L (5-15); Aspartate Amino Transferase 36 U/L (17-59); Bilirubin,Total 0.8 mg/dl (0.2-1.3); Blood Urea Nitrogen 10 mg/dl (9-20); Calcium 10.6 mg/dl (8.4-10.2); Carbon Dioxide 29 mmol/L (22.0-30.0); Chloride 104 mmol/L (98-107); Estimated Glomerular Filt Rate 102 ml/min (>60); GFR (African American) 123 ML/MIN (>60); Globulin 3.9 g/dL (1.3-3.2); Glucose 106 mg/dl (74-100); Potassium 4.3 mmoL/L (3.5-5.1); Sodium 141 mmol/L (136-145); Total Protein,Serum 8.3 g/dl (6.3-8.2)
[2022-06-30 17:40] LABS: Amphetamine/Metha Screen,Urine Negative ng/ml (<1000)
[2022-06-30 17:41] LABS: Barbiturates Screen,Urine Negative ng/ml (<200); Benzodiazepines Screen,Urine Negative ng/ml (<200)
[2022-06-30 17:42] LABS: Cannabinoid Screen,Urine Negative ng/ml (<50)
[2022-06-30 17:43] LABS: Cocaine Screen,Urine Negative ng/ml (<300); Methadone Screen,Urine Negative ng/ml (<300)
[2022-06-30 17:44] LABS: Opiate Screen,Urine Positive ng/ml (<300)
[2022-06-30 17:45] LABS: Phencyclidine Screen,Urine Negative ng/ml (<25)
[2022-06-30 17:47] LABS: 25-OH Vitamin D, Total 19.1 ng/mL (30-100)
[2022-06-30 17:48] LABS: Free T4 (Free Thyroxine) 1.04 ng/dl (0.78-2.19)
[2022-06-30 18:00] LABS: Prostate Specific Ag Screen 0.3 ng/ml (0.0-4.0); Thyroid Stimulating Hormone 1.65 uIU/mL (0.465-4.68)
[2022-06-30 18:20] LABS: Hemoglobin A1C 5.8 % (4.0-6.0)
== END ==
PROVIDERS: PCP Emergency Medicine; Visit Provider Emergency Medicine
DX: T50.902A Poisoning by unspecified drugs, medicaments and biological substances, intentional self-harm, initial encounter (principal); E11.9 Type 2 diabetes mellitus without complications; E55.9 Vitamin D deficiency, unspecified; Z12.5 Encounter for screening for malignant neoplasm of prostate; Z79.84 Long term (current) use of oral hypoglycemic drugs
CPT/HCPCS: 80053; 80305; 82306; 83036; 84439; 84443; 85025; G0103

== ENCOUNTER → 2022-08-27 14:37 | Outpatient (CLI) | payer MEDICARE, MEDICAID, SELFPAY ==
[2022-08-27 15:39] LABS: Amphetamine/Metha Screen,Urine Negative ng/ml (<1000)
[2022-08-27 15:40] LABS: Barbiturates Screen,Urine Negative ng/ml (<200)
[2022-08-27 15:41] LABS: Benzodiazepines Screen,Urine Negative ng/ml (<200); Cannabinoid Screen,Urine Negative ng/ml (<50)
[2022-08-27 15:43] LABS: Methadone Screen,Urine Negative ng/ml (<300)
[2022-08-27 15:44] LABS: Opiate Screen,Urine Positive ng/ml (<300); Phencyclidine Screen,Urine Negative ng/ml (<25)
[2022-08-27 17:31] LABS: Cocaine Screen,Urine Negative ng/ml (<300)
== END ==
PROVIDERS: PCP Emergency Medicine; Visit Provider Emergency Medicine
DX: Z79.899 Other long term (current) drug therapy (principal)
CPT/HCPCS: 80305

== ENCOUNTER → 2022-09-15 14:16 | Outpatient (CLI) | payer MEDICARE, MEDICAID, SELFPAY ==
--- NOTE | 2022-09-15 14:16 | CT_ITS ---
FINAL REPORT TECHNIQUE: Thin section axial images were obtained from the lung apices through the upper abdomen without contrast. This study was performed with techniques to keep radiation doses as low as reasonably achievable (ALARA). Individualized dose reduction techniques using automated exposure control or adjustment of mA and/or kV according to the patient's size were employed. CLINICAL HISTORY: cp, HX MILD HEART ATTACKS AND STROKE COMPARISON: March 2020 FINDINGS: The previously seen pulmonary emboli cannot be evaluated on this without contrast exam. There is a stable mildly prominent high right paratracheal lymph node. There is no other mediastinal, hilar, or axillary lymphadenopathy. There is no pleural or pericardial effusion. There are changes from emphysema and old granulomatous disease. There is a stable 9 mm nodule in the right upper lobe on image 41. Limited, unenhanced evaluation of the upper abdomen demonstrates a cirrhotic liver and enlarged spleen. There are mildly prominent upper abdominal lymph nodes that are stable. There is no acute osseous abnormality. IMPRESSION: Stable right upper lobe nodule. Cirrhosis with splenomegaly.. Reviewed, Interpreted and Dictated by Roxane Lira MD Transcribed by Hector Melchor Authenticated and [facility]
--- NOTE | 2022-09-15 14:30 | CA_ITS ---
APPROVED REPORT EXAM: Comprehensive 2D, Doppler, and color-flow Echocardiogram [employer] Supervisor: KAIDEN Squires, RVS Ht: 5 ft 11 in Wt: 302lbs BSA: 2.51 BP: 119/70 mmHg Indications: Chest Pain, Obesity, Hyperlipidemia, Hypertension/HDD, ex smoker 2D Dimensions Aortic Root 3.18 cm LA Volume 47.20 mL Left Atrium 3.81 cm LA Volume Index [id number] mL/m2 (M/F) 16-34 LVOT 1.81 cm (M/F) 1.5-2.5 M-Mode Dimensions RVDd 2.62 cm (0.9-2.6) LVDd 5.00 cm (3.5-5.7) LVDs 3.35 cm (3.5-5.7) IVSd 1.21 cm (0.6-1.1) PWd 1.17 cm (0.6-1.1) EF (Teich) 61.30% EPSs 0.48 cm FS 33.00% EDV (Teich) 118.20 mL TAPSE 2.12 (<1.7) ESV (Teich) 45.80 mL LV Diastology E Decel Time 213.00 (160-240 msec) E/A Ratio 1.32 MED E' 8.90 (< 7 cm/sec) MED A' 11.20 cm/s E'/MED E' Ratio 10.66 (>14) LAT E' 11.00 (<10 cm/sec) LAT A' 12.50 cm/s E/LAT E' Ratio 8.63 (>14) Aortic Valve LVOT Max 143.00 (70-110 cm/s) LVOT VTI 27.90 cm AoV Peak Fab. 161.00 (50-130 cm/s) AO Peak GR. 10.40 mmHg AO Mean GR. 5.20 (<5 mmHg) AO VTI 29.64 (18-25 cm) MARI (VTI) 2.42 (2.5-4.5 cm2) Mitral Valve MV A Velocity 72.00 (40-130 cm/s) E/A Ratio 1.32 MV Decel. Time 213.00 (160-240 ms) MV PHT 67.00 ms Pulmonary Valve PV Peak Velocity 117.00 (50-150 cm/s) Tricuspid Valve TR P. Velocity 196.00 cm/s RAP Estimate 10.00 mmHg RVSP 25.40 mmHg Left Ventricle Left atrium is mildly enlarged, left ventricle is normal size mild concentric left ventricular hypertrophy, estimated ejection fraction 55% with no regional wall motion abnormality, grade 1 diastolic dysfunction seen without tissue Doppler evidence of late left atrial pressure. Right Ventricle Right atrium and right ventricle are mildly enlarged with normal contractility. Aortic Valve Aortic valve is minimally thickened and fibrosed there is no aortic stenosis aortic insufficiency. Mitral Valve Mitral valve is grossly normal, there is trace mitral regurgitation. Tricuspid Valve Tricuspid valve grossly normal, there is trace tricuspid regurgitation, tricuspid regurgitation (inadequate for calculation of the right ventricular systolic pressure. Pulmonic Valve Pulmonic valve is poorly visualized. Great Vessels Aortic root normal size. Inferior vena cava is poorly visualized. Pericardium No significant pericardial effusion noted. Conclusion 1. Mild biatrial enlargement, normal left ventricular size, estimated ejection fraction 55% with no regional wall motion abnormality, grade 1 diastolic dysfunction seen without tissue Doppler evidence of late left atrial pressure. 2. Mildly enlarged right ventricle with normal contractility. 3. Trace mitral and tricuspid regurgitation. 4. No significant pericardial effusion. 5. Inferior vena cava is poorly visualized. Electronically signed by : Jovany Munson MD 09/15/2022 21:32:39
== END ==
PROVIDERS: PCP Emergency Medicine; Visit Provider Internal Medicine Cardiovascular Disease
DX: R07.9 Chest pain, unspecified (principal); E78.5 Hyperlipidemia, unspecified; I10 Essential (primary) hypertension; I26.99 Other pulmonary embolism without acute cor pulmonale; I82.403 Acute embolism and thrombosis of unspecified deep veins of lower extremity, bilateral; R06.09 Other forms of dyspnea; R07.89 Other chest pain; Z72.0 Tobacco use; Z82.49 Family history of ischemic heart disease and other diseases of the circulatory system
CPT/HCPCS: 71250; 93306

== ENCOUNTER 2022-09-28 08:55 | Day surgery (SDC) | payer MEDICARE, MEDICAID, SELFPAY ==
[2022-09-28] VITALS (14 sets, daily range): BP systolic 116–142; BP diastolic 70–80; PULSE 64–83; RESP 18; O2SAT 92–96; BMI 41.7
--- NOTE | 2022-09-28 07:12 | IR_ITS ---
APPROVED REPORT Patient Location: Outpatient PROCEDURES Left heart catheterization Left ventriculogram Selective coronary angiogram INDICATION Abnormal Myoview, Angina pectoris Informed consent was obtained prior to the procedure. COMPLICATIONS None Estimated Blood Loss: Less than 10 mls TECHNIQUE One percent lidocaine used to anesthetize the right anterior aspect of the wrist. The right radial artery was accessed via the Seldinger technique. A 6 Camb[place] sheath was placed in the right radial artery. 2.5 mg of verapamil, 800 mcg of nitroglycerin, 1mg Lidocaine and 5000 U Heparin were given through the arterial sheath. The papa catheter was also used to perform left heart catheterization, left ventriculogram and selective coronary angiogram. At the end of the procedure the sheath was removed good hemostasis was achieved using Traclet band, patient was transferred to the postop holding area in stable condition. ANGIOGRAPHIC RESULTS The left main artery Has an ostial 10 to 20% stenosis The left anterior descending artery Small with diffuse 10 to 20% luminal irregularities The circumflex artery Nondominant with 10 to 20% luminal irregularities The right coronary artery Large dominant with proximal 30 and 40% stenosis which extend throughout the mid and distal segment The MEJIA ventriculogram reveals Hyperdynamic 75% The left ventricular end-diastolic pressure 20 mmHg IMPRESSION Mild to moderate disease throughout the dominant right coronary as described above accompanied by hyperdynamic ejection fraction and elevated LVEDP all consistent with diastolic dysfunction PLAN 1. Management of diastolic dysfunction 2. Negative inotropes 3. Aggressive risk factor modification Electronically signed by : Kiko Tyson MD 10/01/2022 15:47:12
[2022-09-28 09:40] LABS: Basophils # 0.1 K/mm3 (0-0.2); Basophils % 1.2 % (0.1-2.0); Eosinophils # 0.4 K/mm3 (0.0-0.4); Eosinophils % 4.5 % (0.1-12.0); Hematocrit 46.9 % (42.0-52.0); Hemoglobin 15.5 g/dL (14.1-18.0); Lymphocytes # 2.3 K/mm3 (0.7-4.5); Lymphocytes % 29.9 % (10-50); Mean Corpuscular Hemoglobin 31.6 pg (27.0-31.2); Mean Corpuscular Volume 95.8 fl (80-94); Mean Platelet Volume 8.2 fl (7.4-10.4); Monocytes # 0.5 K/mm3 (0.1-1.0); Neutrophils # 4.5 K/mm3 (1.8-7.8); Neutrophils % 58.2 % (37.0-80.0); Platelet Count 179 K/mm3 (142-424); Red Cell Distribution Width 13.8 % (11.5-17.5); White Blood Count 7.8 K/mm3 (4.8-10.8)
[2022-09-28 09:45] LABS: Chloride 108 mmol/L (98-107)
[2022-09-28 09:46] LABS: Potassium 4.1 mmoL/L (3.5-5.1); Sodium 140 mmol/L (136-145)
[2022-09-28 09:48] LABS: Blood Urea Nitrogen 8 mg/dl (9-20); Creatinine Clearance Estimated 131 mL/min (50-200); Estimated Glomerular Filt Rate 118 ml/min (>60); GFR (African American) 143 ML/MIN (>60)
[2022-09-28 09:49] LABS: Anion Gap 7.1 mEq/L (5-15); Calcium 9.7 mg/dl (8.4-10.2); Carbon Dioxide 29 mmol/L (22.0-30.0); Glucose 130 mg/dl (74-100)
== END 2022-09-28 14:47 | disposition home or self-care (01) ==
LOC: CATHLAB 08:56
PROVIDERS: PCP Emergency Medicine; Visit Provider Internal Medicine
DX: I25.118 Atherosclerotic heart disease of native coronary artery with other forms of angina pectoris; R07.9 Chest pain, unspecified; Z87.891 Personal history of nicotine dependence; I82.403 Acute embolism and thrombosis of unspecified deep veins of lower extremity, bilateral; Z82.49 Family history of ischemic heart disease and other diseases of the circulatory system; Z79.899 Other long term (current) drug therapy
CPT/HCPCS: 80048; 85025; 93458; 99152; C1725; C1760; C1769; J1644; Q9967

== ENCOUNTER → 2022-10-05 12:02 | Outpatient (CLI) | payer MEDICARE, MEDICAID, SELFPAY ==
[2022-10-05 13:46] LABS: Chloride 101 mmol/L (98-107); Potassium 4.1 mmoL/L (3.5-5.1); Sodium 138 mmol/L (136-145)
[2022-10-05 13:49] LABS: Anion Gap 10.1 mEq/L (5-15); Blood Urea Nitrogen 9 mg/dl (9-20); Calcium 10.3 mg/dl (8.4-10.2); Carbon Dioxide 31 mmol/L (22.0-30.0); Estimated Glomerular Filt Rate 118 ml/min (>60); GFR (African American) 143 ML/MIN (>60); Glucose 110 mg/dl (74-100)
== END ==
PROVIDERS: PCP Emergency Medicine; Visit Provider Nurse Practitioner Family
DX: E78.5 Hyperlipidemia, unspecified (principal); I10 Essential (primary) hypertension; I25.10 Atherosclerotic heart disease of native coronary artery without angina pectoris; I25.2 Old myocardial infarction; J44.9 Chronic obstructive pulmonary disease, unspecified; R06.09 Other forms of dyspnea
CPT/HCPCS: 36415; 80048

== ENCOUNTER → 2022-12-17 10:42 | Outpatient (CLI) | payer MEDICARE, MEDICAID, SELFPAY ==
[2022-12-17 15:05] LABS: Barbiturates Screen,Urine Negative ng/ml (<200); Benzodiazepines Screen,Urine Negative ng/ml (<200)
[2022-12-17 15:06] LABS: Amphetamine/Metha Screen,Urine Negative ng/ml (<1000)
[2022-12-17 15:07] LABS: Cannabinoid Screen,Urine Negative ng/ml (<50); Cocaine Screen,Urine Negative ng/ml (<300)
[2022-12-17 15:08] LABS: Methadone Screen,Urine Negative ng/ml (<300); Opiate Screen,Urine Positive ng/ml (<300)
[2022-12-17 15:09] LABS: Phencyclidine Screen,Urine Negative ng/ml (<25)
[2022-12-17 15:31] LABS: Microalbumin/Creatinine Ratio 7.7
[2022-12-17 15:32] LABS: Creatinine,Urine Random 97 mg/dL (Not Estab.)
== END ==
PROVIDERS: PCP Emergency Medicine; Visit Provider Emergency Medicine
DX: Z79.899 Other long term (current) drug therapy (principal)
CPT/HCPCS: 80305; 82043; 82570

== ENCOUNTER → 2023-02-14 14:35 | Outpatient (CLI) | payer MEDICARE, MEDICAID, SELFPAY ==
[2023-02-14 20:04] LABS: Amphetamine/Metha Screen,Urine Negative ng/ml (<1000)
[2023-02-14 20:05] LABS: Barbiturates Screen,Urine Negative ng/ml (<200)
[2023-02-14 20:06] LABS: Benzodiazepines Screen,Urine Negative ng/ml (<200)
[2023-02-14 20:07] LABS: Cannabinoid Screen,Urine Negative ng/ml (<50); Cocaine Screen,Urine Negative ng/ml (<300)
[2023-02-14 20:08] LABS: Methadone Screen,Urine Negative ng/ml (<300)
[2023-02-14 20:09] LABS: Opiate Screen,Urine Negative ng/ml (<300); Phencyclidine Screen,Urine Negative ng/ml (<25)
== END ==
PROVIDERS: PCP Emergency Medicine; Visit Provider Emergency Medicine
DX: T50.902A Poisoning by unspecified drugs, medicaments and biological substances, intentional self-harm, initial encounter (principal); Z79.899 Other long term (current) drug therapy
CPT/HCPCS: 80305

== ENCOUNTER → 2023-04-13 12:00 | Outpatient (CLI) | payer MEDICARE, MEDICAID, SELFPAY ==
[2023-04-13 21:19] LABS: Amphetamine/Metha Screen,Urine Negative ng/ml (<1000); Barbiturates Screen,Urine Negative ng/ml (<200)
[2023-04-13 21:21] LABS: Benzodiazepines Screen,Urine Negative ng/ml (<200); Cannabinoid Screen,Urine Negative ng/ml (<50)
[2023-04-13 21:26] LABS: Cocaine Screen,Urine Negative ng/ml (<300); Methadone Screen,Urine Positive ng/ml (<300)
[2023-04-13 21:27] LABS: Opiate Screen,Urine Negative ng/ml (<300)
[2023-04-13 21:28] LABS: Phencyclidine Screen,Urine Negative ng/ml (<25)
== END ==
LOC: LAB.DROPOF 04-14 00:39
PROVIDERS: PCP Emergency Medicine; Visit Provider Emergency Medicine
DX: M47.816 Spondylosis without myelopathy or radiculopathy, lumbar region (principal)
CPT/HCPCS: 80305

== ENCOUNTER → 2023-04-28 23:36 | Outpatient (CLI) | payer MEDICARE, MEDICAID, SELFPAY ==
[2023-04-28 19:49] LABS: Amphetamine/Metha Screen,Urine Negative ng/ml (<1000)
[2023-04-28 19:51] LABS: Barbiturates Screen,Urine Negative ng/ml (<200); Cannabinoid Screen,Urine Negative ng/ml (<50)
[2023-04-28 19:52] LABS: Benzodiazepines Screen,Urine Negative ng/ml (<200); Methadone Screen,Urine Negative ng/ml (<300)
[2023-04-28 19:53] LABS: Opiate Screen,Urine Positive ng/ml (<300)
[2023-04-28 19:54] LABS: Cocaine Screen,Urine Negative ng/ml (<300)
[2023-04-28 19:55] LABS: Phencyclidine Screen,Urine Negative ng/ml (<25)
== END ==
PROVIDERS: PCP Emergency Medicine; Visit Provider Emergency Medicine
DX: T50.902A Poisoning by unspecified drugs, medicaments and biological substances, intentional self-harm, initial encounter (principal)
CPT/HCPCS: 80305

== ENCOUNTER → 2023-05-11 13:11 | Outpatient (CLI) | payer MEDICARE, MEDICAID, SELFPAY ==
[2023-05-11 12:23] LABS: Amphetamine/Metha Screen,Urine Negative ng/ml (<1000); Barbiturates Screen,Urine Negative ng/ml (<200)
[2023-05-11 12:24] LABS: Benzodiazepines Screen,Urine Negative ng/ml (<200)
[2023-05-11 12:25] LABS: Cannabinoid Screen,Urine Negative ng/ml (<50); Cocaine Screen,Urine Negative ng/ml (<300)
[2023-05-11 12:26] LABS: Methadone Screen,Urine Negative ng/ml (<300); Opiate Screen,Urine Positive ng/ml (<300)
[2023-05-11 12:27] LABS: Phencyclidine Screen,Urine Negative ng/ml (<25)
== END ==
PROVIDERS: PCP Emergency Medicine; Visit Provider Emergency Medicine
DX: T50.902A Poisoning by unspecified drugs, medicaments and biological substances, intentional self-harm, initial encounter (principal)
CPT/HCPCS: 80305

== ENCOUNTER → 2023-06-10 15:25 | Outpatient (CLI) | payer MEDICARE, MEDICAID, SELFPAY ==
[2023-06-10 15:51] LABS: Benzodiazepines Screen,Urine Negative ng/ml (<200)
[2023-06-10 15:52] LABS: Amphetamine/Metha Screen,Urine Negative ng/ml (<1000); Barbiturates Screen,Urine Negative ng/ml (<200)
[2023-06-10 15:53] LABS: Cannabinoid Screen,Urine Negative ng/ml (<50); Cocaine Screen,Urine Negative ng/ml (<300)
[2023-06-10 15:54] LABS: Methadone Screen,Urine Positive ng/ml (<300)
[2023-06-10 15:55] LABS: Opiate Screen,Urine Positive ng/ml (<300); Phencyclidine Screen,Urine Negative ng/ml (<25)
== END ==
PROVIDERS: PCP Emergency Medicine; Visit Provider Emergency Medicine
DX: T50.902A Poisoning by unspecified drugs, medicaments and biological substances, intentional self-harm, initial encounter (principal)
CPT/HCPCS: 80305

== ENCOUNTER → 2023-06-14 15:05 | Outpatient (CLI) | payer MEDICARE, MEDICAID, SELFPAY ==
[2023-06-14 13:53] LABS: Amphetamine/Metha Screen,Urine Negative ng/ml (<1000)
[2023-06-14 13:54] LABS: Barbiturates Screen,Urine Negative ng/ml (<200)
[2023-06-14 13:55] LABS: Benzodiazepines Screen,Urine Negative ng/ml (<200)
[2023-06-14 13:57] LABS: Cannabinoid Screen,Urine Negative ng/ml (<50); Cocaine Screen,Urine Negative ng/ml (<300)
[2023-06-14 13:58] LABS: Methadone Screen,Urine Negative ng/ml (<300); Opiate Screen,Urine Positive ng/ml (<300)
[2023-06-14 13:59] LABS: Phencyclidine Screen,Urine Negative ng/ml (<25)
== END ==
PROVIDERS: PCP Emergency Medicine; Visit Provider Emergency Medicine
DX: Z79.899 Other long term (current) drug therapy (principal)
CPT/HCPCS: 80305

== ENCOUNTER 2023-08-08 15:37 | Outpatient (CLI) | payer MEDICARE, MEDICAID, SELFPAY ==
[2023-08-08 13:04] LABS: Basophils # 0.1 K/mm3 (0-0.2); Basophils % 0.9 % (0.1-2.0); Eosinophils # 0.3 K/mm3 (0.0-0.4); Eosinophils % 2.9 % (0.1-12.0); Hematocrit 50.7 % (42.0-52.0); Lymphocytes # 2.6 K/mm3 (0.7-4.5); Lymphocytes % 28.3 % (10-50); Mean Corpuscular HGB Conc 33.4 g/dL (31.8-35.4); Mean Corpuscular Hemoglobin 31.6 pg (27.0-31.2); Mean Corpuscular Volume 94.4 fl (80-94); Mean Platelet Volume 9.2 fl (7.4-10.4); Monocytes # 0.6 K/mm3 (0.1-1.0); Monocytes % 6.5 % (1.7-9.3); Neutrophils # 5.7 K/mm3 (1.8-7.8); Neutrophils % 61.4 % (37.0-80.0); Platelet Count 174 K/mm3 (142-424); Red Blood Count 5.37 M/mm3 (4.60-6.20); White Blood Count 9.4 K/mm3 (4.8-10.8)
[2023-08-08 13:08] LABS: Alanine Aminotransferase 23 U/L (12-78); Albumin/Globulin Ratio 1.1 (1.1-1.8); Alkaline Phosphatase 75 U/L (38-126); Anion Gap 10.8 mEq/L (5-15); Aspartate Amino Transferase 32 U/L (17-59); Bilirubin,Total 0.6 mg/dl (0.2-1.3); Blood Urea Nitrogen 6 mg/dl (9-20); Calcium 9.4 mg/dl (8.4-10.2); Carbon Dioxide 22 mmol/L (22.0-30.0); Chloride 107 mmol/L (98-107); Chol/HDL Ratio 4.1 (1-3.5); Cholesterol 132 mg/dl (140-200); Estimated Glomerular Filt Rate 118 ml/min (>60); GFR (African American) 143 ML/MIN (>60); Globulin 3.6 g/dL (1.3-3.2); Glucose 134 mg/dl (74-100); HDL Cholesterol 32 mg/dl (40-60); Potassium 3.8 mmoL/L (3.5-5.1); Sodium 136 mmol/L (136-145); Total Protein,Serum 7.6 g/dl (6.3-8.2); Triglycerides 136 mg/dl (30-150); VLDL Cholesterol 27 mg/dL (0-40)
[2023-08-08 13:19] LABS: Direct LDL Cholesterol 72.84 mg/dL (100-129)
[2023-08-08 13:35] LABS: Amphetamine/Metha Screen,Urine Negative ng/ml (<1000); Barbiturates Screen,Urine Negative ng/ml (<200); Benzodiazepines Screen,Urine Negative ng/ml (<200); Cannabinoid Screen,Urine Negative ng/ml (<50); Cocaine Screen,Urine Negative ng/ml (<300); Methadone Screen,Urine Negative ng/ml (<300); Opiate Screen,Urine Negative ng/ml (<300); Phencyclidine Screen,Urine Negative ng/ml (<25)
[2023-08-08 14:10] LABS: Microalbumin/Creatinine Ratio 25.8
[2023-08-08 14:21] LABS: Hemoglobin A1C 5.4 % (4.0-6.0)
== END 2023-08-08 23:59 ==
LOC: LAB.DROPOF 15:38
PROVIDERS: PCP Internal Medicine; Visit Provider Internal Medicine
DX: Z79.899 Other long term (current) drug therapy (principal); I10 Essential (primary) hypertension; I95.1 Orthostatic hypotension; R73.09 Other abnormal glucose; E78.5 Hyperlipidemia, unspecified; E66.9 Obesity, unspecified; Z68.39 Body mass index [BMI] 39.0-39.9, adult; Z87.891 Personal history of nicotine dependence; Z79.84 Long term (current) use of oral hypoglycemic drugs
CPT/HCPCS: 80053; 80061; 80307; 82043; 82570; 83036; 85025

== ENCOUNTER 2023-09-21 21:55 | Outpatient (CLI) | payer MEDICARE, MEDICAID, SELFPAY ==
[2023-09-21 20:06] LABS: Prostate Specific Ag Screen 0.2 ng/ml (0.0-4.0)
== END 2023-09-21 23:59 ==
LOC: LAB.DROPOF 21:55
PROVIDERS: PCP Internal Medicine; Visit Provider Internal Medicine
DX: Z12.5 Encounter for screening for malignant neoplasm of prostate (principal); Z79.899 Other long term (current) drug therapy
CPT/HCPCS: G0103

== ENCOUNTER 2024-02-13 10:10 | Outpatient (CLI) | payer MEDICARE, MEDICAID, SELFPAY ==
[2024-02-13 19:15] LABS: Chloride 109 mmol/L (98-107)
[2024-02-13 19:16] LABS: Potassium 4.2 mmoL/L (3.5-5.1); Sodium 138 mmol/L (136-145)
[2024-02-13 19:18] LABS: Alanine Aminotransferase 24 U/L (12-78); Albumin Level 3.7 g/dl (3.5-5.0); Alkaline Phosphatase 106 U/L (38-126); Anion Gap 9.2 mEq/L (5-15); Aspartate Amino Transferase 35 U/L (17-59); Bilirubin,Total 0.5 mg/dl (0.2-1.3); Blood Urea Nitrogen 8 mg/dl (9-20); Carbon Dioxide 24 mmol/L (22.0-30.0); Cholesterol 169 mg/dl (140-200); Estimated Glomerular Filt Rate 118 ml/min (>60); GFR (African American) 143 ML/MIN (>60); Globulin 3.6 g/dL (1.3-3.2); Total Protein,Serum 7.3 g/dl (6.3-8.2); Triglycerides 275 mg/dl (30-150); VLDL Cholesterol 55 mg/dL (0-40)
[2024-02-13 19:19] LABS: Calcium 10.1 mg/dl (8.4-10.2); Chol/HDL Ratio 4.8 (1-3.5); Glucose 93 mg/dl (74-100); HDL Cholesterol 35 mg/dl (40-60)
[2024-02-13 19:32] LABS: Hemoglobin A1C 5.2 % (4.0-6.0)
[2024-02-13 19:34] LABS: Direct LDL Cholesterol 79.66 mg/dL (100-129)
== END 2024-02-13 23:59 | disposition home or self-care (01) ==
LOC: LAB.DROPOF 02-14 08:35
PROVIDERS: PCP Family Medicine; Visit Provider Family Medicine
DX: E11.42 Type 2 diabetes mellitus with diabetic polyneuropathy (principal); E66.09 Other obesity due to excess calories; Z68.39 Body mass index [BMI] 39.0-39.9, adult; E78.5 Hyperlipidemia, unspecified; E11.9 Type 2 diabetes mellitus without complications; Z87.891 Personal history of nicotine dependence; Z79.899 Other long term (current) drug therapy
CPT/HCPCS: 80053; 80061; 83036

== ENCOUNTER 2024-05-10 19:11 | Outpatient (CLI) | payer MEDICARE, MEDICAID, SELFPAY ==
[2024-05-10 19:57] LABS: Creatinine,Urine Random 125 mg/dL (Not Estab.); Microalbumin < 6.000 mg/L (0-16.7)
== END 2024-05-10 23:59 | disposition home or self-care (01) ==
LOC: LAB.DROPOF 19:12
PROVIDERS: PCP Internal Medicine; Visit Provider Internal Medicine
DX: E78.2 Mixed hyperlipidemia (principal)
CPT/HCPCS: 82043; 82570

== ENCOUNTER 2024-07-19 10:31 | Outpatient (CLI) | payer MEDICARE, MEDICAID, SELFPAY ==
[2024-07-19 19:29] LABS: Chol/HDL Ratio 3.9 (1-3.5); Cholesterol 125 mg/dl (140-200); HDL Cholesterol 32 mg/dl (40-60); Triglycerides 235 mg/dl (30-150); VLDL Cholesterol 47 mg/dL (0-40)
[2024-07-19 19:41] LABS: Direct LDL Cholesterol 43.94 mg/dL (100-129)
[2024-07-19 20:38] LABS: Creatinine,Urine Random 106 mg/dL (Not Estab.)
[2024-07-19 20:46] LABS: Hemoglobin A1C 5.9 % (4.0-6.0); Microalbumin < 6.000 mg/L (0-16.7)
== END 2024-07-19 23:59 | disposition home or self-care (01) ==
LOC: LAB.DROPOF 07-20 10:01
PROVIDERS: PCP Internal Medicine; Visit Provider Internal Medicine
DX: E11.42 Type 2 diabetes mellitus with diabetic polyneuropathy (principal)
CPT/HCPCS: 80061; 82043; 82570; 83036

== ENCOUNTER 2024-08-13 07:00 | Outpatient (CLI) | payer MEDICARE, MEDICAID, SELFPAY ==
--- NOTE | 2024-08-13 07:07 | CT_ITS ---
FINAL REPORT CLINICAL HISTORY: lung cancer screening current smoker 1ppd x45 years COMPARISON: 09/15/2022 FINDINGS: CT CHEST LOW DOSE SCREENING HISTORY: Screening exam for lung cancer. 54-year-old male, current smoker, 45 pack year smoking history DOSE: CTDIvol: 2.90 mGy, DLP: 105.77 mGy*cm COMPARISON: Chest CT 09/15/2022. TECHNIQUE: Axial CT without IV contrast administration using low dose protocol. This study was performed with techniques to keep radiation doses as low as reasonably achievable, (ALARA). Individualized dose reduction techniques using automated exposure control or adjustment of mA and/or kV according to the patient's size were employed. FINDINGS: No acute lung disease is present . No pulmonary lesions are seen suspicious for neoplasm. There is a medial right midlung nodule best seen on image #44 of series 3, stable when compared to the prior exam. There is a 3 mm left lower lobe nodule along the major fissure, best seen on image #42, stable and consistent in appearance with an intrafissural node. No pleural or pericardial effusion is seen . No adenopathy or mass lesion is present . IMPRESSION: 1. No evidence of lung cancer LUNG RADS CATEGORY 2 RECOMMENDATION: 12 month LDCT follow up Reviewed, Interpreted and Dictated by Nay Pastrana MD Transcribed by Keyla Jane Authenticated and [facility]
== END 2024-08-13 23:59 | disposition home or self-care (01) ==
LOC: RAD 07:01
PROVIDERS: PCP Internal Medicine; Visit Provider Internal Medicine
DX: Z87.891 Personal history of nicotine dependence (principal)
CPT/HCPCS: 71271

== ENCOUNTER 2024-10-22 15:50 | Outpatient (CLI) | payer MEDICARE, MEDICAID, SELFPAY ==
[2024-10-22 20:08] LABS: Hemoglobin A1C 5.5 % (4.0-6.0)
[2024-10-22 20:48] LABS: Alanine Aminotransferase 23 U/L (12-78); Albumin Level 3.7 g/dl (3.5-5.0); Albumin/Globulin Ratio 1.2 (1.1-1.8); Alkaline Phosphatase 53 U/L (38-126); Anion Gap 2.7 mEq/L (5-15); Aspartate Amino Transferase 30 U/L (17-59); Bilirubin,Total 0.8 mg/dl (0.2-1.3); Blood Urea Nitrogen 10 mg/dl (9-20); Calcium 10.9 mg/dl (8.4-10.2); Carbon Dioxide 33 mmol/L (22.0-30.0); Chloride 105 mmol/L (98-107); Chol/HDL Ratio 2.8 (1-3.5); Cholesterol 115 mg/dl (140-200); Estimated Glomerular Filt Rate 140 ml/min (>60); GFR (African American) 170 ML/MIN (>60); Glucose 120 mg/dl (74-100); HDL Cholesterol 41 mg/dl (40-60); Potassium 3.7 mmoL/L (3.5-5.1); Sodium 137 mmol/L (136-145); Total Protein,Serum 6.7 g/dl (6.3-8.2); Triglycerides 122 mg/dl (30-150); VLDL Cholesterol 24 mg/dL (0-40)
[2024-10-22 20:59] LABS: Direct LDL Cholesterol 41.01 mg/dL (100-129)
[2024-10-22 21:19] LABS: Prostate Specific Ag Screen 0.1 ng/ml (0.0-4.0)
== END 2024-10-22 23:59 | disposition home or self-care (01) ==
LOC: LAB.DROPOF 10-23 14:29
PROVIDERS: PCP Family Medicine; Visit Provider Family Medicine
DX: E11.42 Type 2 diabetes mellitus with diabetic polyneuropathy (principal); E78.2 Mixed hyperlipidemia; Z12.5 Encounter for screening for malignant neoplasm of prostate
CPT/HCPCS: 80053; 80061; 83036; G0103

== ENCOUNTER 2025-01-21 10:27 | Outpatient (CLI) | payer MEDICARE, MEDICAID, SELFPAY ==
[2025-01-21 19:10] LABS: Hemoglobin A1C 7.1 % (4.0-6.0)
[2025-01-21 19:22] LABS: Albumin Level 3.6 g/dl (3.5-5.0); Chloride 102 mmol/L (98-107); Sodium 135 mmol/L (136-145)
[2025-01-21 19:24] LABS: Alanine Aminotransferase 20 U/L (12-78); Aspartate Amino Transferase 32 U/L (17-59); Blood Urea Nitrogen 10 mg/dl (9-20); Carbon Dioxide 25 mmol/L (22.0-30.0); Estimated Glomerular Filt Rate 173 ml/min (>60); GFR (African American) 210 ML/MIN (>60)
[2025-01-21 19:25] LABS: Alkaline Phosphatase 86 U/L (38-126); Bilirubin,Total 0.7 mg/dl (0.2-1.3); Calcium 9.3 mg/dl (8.4-10.2); Chol/HDL Ratio 2.7 (1-3.5); Cholesterol 106 mg/dl (140-200); Globulin 3.5 g/dL (1.3-3.2); Glucose 119 mg/dl (74-100); HDL Cholesterol 39 mg/dl (40-60); Total Protein,Serum 7.1 g/dl (6.3-8.2); Triglycerides 61 mg/dl (30-150); VLDL Cholesterol 12 mg/dL (0-40)
[2025-01-21 19:36] LABS: Direct LDL Cholesterol 45.73 mg/dL (100-129)
== END 2025-01-21 23:59 | disposition home or self-care (01) ==
LOC: LAB.DROPOF 01-23 10:28
PROVIDERS: PCP Family Medicine; Visit Provider Family Medicine
DX: E11.9 Type 2 diabetes mellitus without complications (principal)
CPT/HCPCS: 80053; 80061; 83036

== ENCOUNTER 2025-02-15 09:09 | Outpatient (CLI) | payer MEDICARE, MEDICAID, SELFPAY ==
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
[2025-02-15 08:01] VITALS: BMI 38.0
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
--- OUTSIDE RECORDS SUMMARY | 2025-02-15 09:12 | XMS_ITS | Encounter Summary ---
Author Organization [facility] [place] [address] Care Team Providers Care Atomic Welder Name Role Phone No Pcp, Provider Not In [facility] Primary Care Provid er Unavailable Encounter Details Date Type Department Care Team (Latest Contact Info) Description 01/31/2025 Travel Social History Tobacco Use Types Packs/Day Years [...] on file documented as of this encounter Functional Status * Suicide Severity Rating Answer Date of Assessment Author No Risk 01/31/2025 10:39 PM EDT Devante Ruiz RN * Grant Suicide Severity Rating Scale (Q shift for [...] to question 6) 0 01/31/2025 10:39 PM ETELVINAT Kiara Ruiz RN 6. Have you ever done anythi ng, started to do anything, or prepared to do anything to end your life? 0 01/31/2025 10:39 PM ETELVINAT Kiara Ruiz RN documented as of this encounter Plan of Treatment Not on file documented as of this encounter Visit Diagnoses Not on filedocumented in this encounter Care Teams Atomic Welder Relationship Specialty Start Date End Date No Pcp, Provider Not In [facility] PCP - General 01/31/25 documented as of this encounter
--- NOTE | 2025-02-15 09:30 | ECG_ITS ---
APPROVED REPORT Exam: Resting ECG HR:63 bpm ECG Measurements Heart Rate 63 AXES VT 139 P 39 QRSd 114 QRS -10 QT 423 T 42 QTc 430 Conclusion SINUS RHYTHM LOW QRS VOLTAGE IN PRECORDIAL LEADS Nonspecific IV conduction delay BORDERLINE ECG UNCONFIRMED REPORT Electronically signed by : Geoffrey Crandall MD 02/22/2025 07:59:33
[2025-02-15 10:06] LABS: Hematocrit 44.0 % (42.0-52.0); Hemoglobin 14.9 g/dL (14.1-18.0); Immature Granulocytes % 0.3 %; Mean Corpuscular HGB Conc 33.9 g/dL (31.8-35.4); Mean Corpuscular Hemoglobin 31.3 pg (27.0-31.2); Mean Corpuscular Volume 92.4 fl (80-94); Nucleated Red Blood Cells % 0 %; Platelet Count 131 K/mm3 (142-424); Red Blood Count 4.76 M/mm3 (4.60-6.20); Red Cell Distribution Width-SD 47.8 fL; White Blood Count 7.7 K/mm3 (4.8-10.8)
[2025-02-15 10:18] LABS: Albumin Level 3.7 g/dl (3.5-5.0); Chloride 109 mmol/L (98-107); Potassium 4.0 mmoL/L (3.5-5.1); Sodium 138 mmol/L (136-145)
[2025-02-15 10:21] LABS: Alanine Aminotransferase 22 U/L (12-78); Albumin/Globulin Ratio 1.1 (1.1-1.8); Alkaline Phosphatase 81 U/L (38-126); Anion Gap 10.0 mEq/L (5-15); Aspartate Amino Transferase 33 U/L (17-59); Bilirubin,Total 0.5 mg/dl (0.2-1.3); Blood Urea Nitrogen 13 mg/dl (9-20); Carbon Dioxide 23 mmol/L (22.0-30.0); Creatinine Clearance Estimated 247 mL/min (50-200); Creatinine,Serum 0.60 mg/dl (0.66-1.25); Estimated Glomerular Filt Rate 140 ml/min (>60); GFR (African American) 170 ML/MIN (>60); Globulin 3.5 g/dL (1.3-3.2); Total Protein,Serum 7.2 g/dl (6.3-8.2)
[2025-02-15 10:22] LABS: Calcium 9.8 mg/dl (8.4-10.2); Glucose 116 mg/dl (74-100)
== END 2025-02-15 23:59 | disposition home or self-care (01) ==
LOC: PREOP 09:10
PROVIDERS: PCP Family Medicine; Visit Provider Surgery
DX: Z01.810 Encounter for preprocedural cardiovascular examination (principal); Z01.812 Encounter for preprocedural laboratory examination; I45.89 Other specified conduction disorders; R94.31 Abnormal electrocardiogram [ECG] [EKG]
CPT/HCPCS: 80053; 85025; 93005

== ENCOUNTER 2025-02-22 09:01 | Day surgery (SDC) | payer MEDICARE, MEDICAID, SELFPAY ==
[2025-02-15 13:01] VITALS: BMI 38.0
[2025-02-22] VITALS (11 sets, daily range): BP systolic 126–161; BP diastolic 71–90; PULSE 70–83; RESP 14–18; TEMP 36.4–36.6; O2SAT 94–98
[2025-02-22] MEDS: LACTATED RINGERS 1000ML 1,000 ML 25 ML IV (09:33)
[2025-02-22] MEDS: LIDOCAINE 1% 20ML MDV 20 ML (10:10)
--- NOTE | 2025-02-22 10:23 | P.PNANES_ITS ---
[facility] Disclaimer: The information contained in this section may have been updated after the patient was seen, as this information can be updated by other users. Medical History (Updated 02/15/25 @ 09:23 by Amrit Nicole RN) CVA (cerebral vascular accident) Pulmonary thrombosis Chronic, continuous use of opioids Chronic back pain Elevated left ventricular end-diastolic pressure (LVEDP) Coronary artery calcification seen on CAT scan Typical angina Degenerative joint disease (DJD) of lumbar spine Postlaminectomy syndrome, cervical Hypertensive disorder Surgical History (Updated 02/15/25 @ 09:23 by Amrit Nicole RN) History of shoulder surgery History of hernia repair S/P cervical spinal fusion Family History (Updated 02/15/25 @ 09:24 by Amrit Nicole RN) Other Family history of cancer Family history of diabetes mellitus Family history of heart disease Social History (Updated 02/15/25 @ 09:24 by Amrit Nicole RN) Smoking Status: Current every day smoker tobacco type: cigarettes packs per day: 1 second hand exposure: Yes alcohol intake: never counseling provided: none substance use type: denies use current occupational status: disabled Travel in the last 8 weeks?: None household members: spouse housing: house current occupational exposures/hazards: No caffeine: Yes Have you lived/traveled outside US in past 30 days?: No Contact w/someone who lives/traveled outside US past 30 days?: No Exposure to someone with infectious disease in past 14 days?: No Do you have a fever (greater than 100.4 F or 38 C)?: No Have you tested positive for COVID-19?: No Exposed to someone with COVID-19 in past 14 days?: No Do you have a sore throat?: No Do you have a cough?: No Do you have any weakness?: No Do you have any diarrhea?: No Are you experiencing any unusual bleeding?: No Do you have any muscle aches/pain?: No Do you have any abdominal pain?: No Are you experiencing loss of taste or smell?: No [facility] Anesthesia Checklist Patient Identification Patient Identification: Arm Band and Verbal (Name & ) Structural Data Admitted From: Home Planned Operative Procedure/s: Neck I&D Consent for Planned Operative Procedure(s) Verified: Yes Verified Documents: Surgical Consent NPO Status Verified Time NPO: 00:00 Chart Verification Results Verified: ECG Additional verifications Anesthesia Reactions: No Hx Blood Transfusions: No Blood Transfusion Reaction: No Airway Assessment Mallampati Score:: Class II C-Spine Mobility Assessed: Yes TMJ Mobility Assessed: Yes Dentition: Good Dentition Neurological Assessment Level of Consciousness: Awake, Alert and Appropriate Hx Seizures: No Numbness or tingling in extremities: No Anesthesia Plan Anesthesia Risk discussed: Yes Anesthesia Plan: Verified ASA Class: III Anesthesia Type: General
--- NOTE | 2025-02-22 10:38 | EXP.OP.NOTE ---
Date of procedure: 02/22/25 Pre-op Diagnosis:: Complex multifocal 3 cm posterior neck cyst Post-op Diagnosis:: Same Procedure performed:: Excision of 3 cm posterior neck cyst Surgeon:: Oscar Bowens MD EDUCATIONAL INTERPRETER:: Finn Melchor Anesthesia: local and LMA Estimated blood loss (mL): 10 Operative findings:: Complex multifocal cysts with adjacent fistulous tract from prior abscess Operative note:: After informed consent was obtained the patient was taken to the operating room and placed in the supine position. General anesthesia was induced and he was transferred to a modified left lateral decubitus position. His posterior neck and surrounding region was prepped and draped in a sterile fashion. After infiltration with local anesthetic an elliptical incision was made around the lesion. Adjacent fistulous track from prior abscess was noted to be projecting in a caudal direction. The dissection was extended to encompass this tissue. Electrocautery was utilized to transect around the entire lesion into the deep subcutaneous tissue. The lesion was excised in toto and passed off for pathologic evaluation. Electrocautery was utilized to achieve hemostasis. Skin was then reapproximated with interrupted 4-0 nylon in a mattress fashion. Dressings were applied and the patient was transferred to recovery in stable condition. Condition: stable Disposition: PACU Specimens:: Posterior neck cyst Complications:: No immediate
--- NOTE | 2025-02-22 10:48 | EXP.ANES.I ---
[facility] Anesthesia Record Part I Anesthesia Record I Intake, IV Amount: 500 Hydration: Adequate Estimated blood loss (mL): 0 Urine output (mL): 0 Blood Products used (#): none Blood Pressure: 142/81 SaO2: 98 Pulse Rate: 78 Airway Patency: Patent Respiratory Rate: 14 Temperature: 97.6 F Patient is:: Stable and Somnolent Stable to PACU at:: 10:46
[2025-02-22] MEDS: KETOROLAC 30MG/ML VIAL 30 MG IV (11:29)
--- NOTE | 2025-02-22 12:16 | EXP.ANES.II ---
[facility] Anesthesia Record Part II Anesthesia Record Part II Discharge Time: 11:26 Destination: Surgical Day Care (OP Surgery) PACU nurse assessment reviewed?: Yes Patient Condition:: Good Anesthesia Complications:: None Swallowing reflex intact?: Yes Airway Patency: Patent Cyanosis?: No Blood Pressure: 151/76 SaO2: 98 Respiratory Rate: 16 Pulse Rate: 76 Temperature: 97.6 F Mental Status: Alert & Oriented Pain level:: 5 Nausea and/or vomitting:: None Intake, IV Amount: 0 Hydration: Adequate
[2025-02-22 20:12] LABS: POC Glucose,Bedside 114 (70-110)
== END 2025-02-22 12:14 | disposition home or self-care (01) ==
PROVIDERS: PCP Family Medicine; Visit Provider Surgery
PROC: (CPT 11770; principal; 2025-02-22 11:00)
DX: L05.91 Pilonidal cyst without abscess (principal); I25.10 Atherosclerotic heart disease of native coronary artery without angina pectoris; Z86.73 Personal history of transient ischemic attack (TIA), and cerebral infarction without residual deficits; I10 Essential (primary) hypertension; Z86.711 Personal history of pulmonary embolism; F17.210 Nicotine dependence, cigarettes, uncomplicated; Z88.5 Allergy status to narcotic agent; Z91.030 Bee allergy status; Z79.84 Long term (current) use of oral hypoglycemic drugs; Z79.82 Long term (current) use of aspirin; Z79.899 Other long term (current) drug therapy
CPT/HCPCS: 11770; 82962; 88304; 96374; J0690; J1100; J1885; J2003; J2250; J2405; J2704; J3010; J7120